=== PATIENT | male | born 1950 | race Caucasian/White ===

== ENCOUNTER 2016-11-25 16:40 | Inpatient (IN) | payer MEDICARE, MEDICAID ==
[2016-11-25] MEDS ORDERED: Sodium Chloride 0.9% 1,000 ML IV ONE (16:45)
--- NOTE | 2016-11-25 16:49 | ED Physician Chart ---
Chief Complaint/HPI - Patient Information Date Seen:: 11/25/16 Time Seen:: 16:46 Chief Complaint:: ugi bleed? History of Present Illness:: demented pt from [place] sent in for 4x today episodes of emesis of coffee ground material. has a hx of ulcer. pt unable to give any hx...due to dementia? no known melena or tarry stool. no recent cp or sob. family arrives (6;19p) - dtr says he in nrmlly nonverbal and this is his baseline neuro status. was unaware of any ulcer hx Historian:: EMS Review of Systems - Review of Systems General/Constitutional: No fever, No chills, No weight loss, No weakness, No diaphoresis, No edema, No loss of appetite, Other (ros is limited by nonverbal pt. most info is inferred.) Skin: No skin lesions, No rash, No bruising Head: No headache, No light-headedness Eyes: No loss of vision, No pain, No diplopia ENT: No earache, No nasal drainage, No sore throat, No tinnitus Neck: No neck pain, No swelling, No thyromegaly, No stiffness, No mass noted Cardio Vascular: No chest pain, No palpitations, No PND, No orthopnea, No edema Pulmonary: No SOB, No cough, No sputum, No wheezing GI: No nausea, Vomiting, No diarrhea, No pain, No melena, No hematochezia, No constipation, No hematemesis G/U: No dysuria, No frequency, No hematuria Musculoskeletal: No bone or joint pain, No back pain, No muscle pain Endocrine: No polyuria, No polydipsia Psychiatric: No prior psych history, No depression, No anxiety, No suicidal ideation Hematopoietic: No bruising, No lymphadenopathy Allergic/Immuno: No urticaria, No angioedema Neurological: No syncope, No focal symptoms, No weakness, No paresthesia, No headache, No seizure, No dizziness, Confusion, No vertigo Past Medical History - Past Medical History Past Medical History: Asthma/COPD, PUD/GERD, Seizures, Arthritis, Dementia, Other (parkinson dz, peripheral vasc dzanemia, encephalopathy) Social History: Care Facility Surgical History: PEG/GTube Medication: Reviewed Family Medical History - Family Member Mother History Unknown: Yes Physical Exam - Physical Examination General/Constitutional: Well-developed, well-nourished, No distress, Non-toxic appearing Other Gen/Cons comments:: nonverbal. seems unaware of surroundings. alert w even respirations. not pale. moist mucosa. no abd tndrness. nor mass. Head: Atraumatic Eyes: Lids, conjuctiva normal, PERRL, EOMI Skin: Nl inspection, No rash, No skin lesions, No ecchymosis, Well hydrated, No lymphadenopathy ENMT: External ears, nose nl, Nasal exam nl, Lips, teeth, gums nl Other ENMT comments:: black material on tongue Neck: Nontender, Full ROM w/o pain, No JVD, No nuchal rigidity, No bruit, No mass, No stridor Respiratory: Nl effort/Exclusion, Clear to Auscultation, No Wheeze/Rhonchi/Rales Cardio Vascular: RRR, No murmur, gallop, rubs, NL S1 S2 GI: No tenderness/rebounding/guarding, No organomegaly, No hernia, Normal BS's, Nondistended, No mass/bruits, No McBurney tenderness Other GI comments:: peg tube at luq abd ..site looks clean/noninfected : No CVA tenderness Extremities: No tenderness or effusion, Full ROM, normal strength in all extremities, No edema, Normal digits & nails Neuro/Psych: DTR's symmetric, Normal sensory exam, Normal motor strength, No focal deficits (gross ok.) Misc: normal gait, Normal back, No paraspinal tenderness Labs/Radiology/EKG Results - Lab Results Results: Laboratory Tests 11/25/16 11/25/16 11/25/16 17:05 17:05 17:05 WBC 23.4 H* RBC 4.66 Hgb 15.4 Hct 44.1 MCV 94.6 MCH 33.2 H MCHC Differential 35.1 RDW 12.0 Plt Count 168 MPV 9.5 Band Neutrophils % 24 H Neutrophils (Manual) 71 Lymphocytes 1 L Monocytes 4 Eosinophils 0 Platelet Estimate ADEQUATE Platelet Morphology NORMAL RBC Morph Micro Appear NORMAL PT 13.1 H INR 1.30 PTT (Actin FS) 27.9 Sodium 135 L Potassium 3.9 Chloride 109 H Carbon Dioxide 25.5 Anion Gap 4.4 L BUN 40 H Creatinine 0.8 Est GFR ( Amer) > 60.0 Est GFR (Non-Af Amer) > 60.0 BUN/Creatinine Ratio 50.0 Glucose 154 H Calcium 9.2 Total Bilirubin 1.2 H AST 28 ALT 43 Alkaline Phosphatase 66 Troponin I Total Protein 6.8 Albumin 3.4 L Globulin 3.4 Albumin/Globulin Ratio 1.0 Blood Type Antibody Screen 11/25/16 11/25/16 17:05 17:05 WBC RBC Hgb Hct MCV MCH MCHC Differential RDW Plt Count MPV Band Neutrophils % Neutrophils (Manual) Lymphocytes Monocytes Eosinophils Platelet Estimate Platelet Morphology RBC Morph Micro Appear PT INR PTT (Actin FS) Sodium Potassium Chloride Carbon Dioxide Anion Gap BUN Creatinine Est GFR ( Amer) Est GFR (Non-Af Amer) BUN/Creatinine Ratio Glucose Calcium Total Bilirubin AST ALT Alkaline Phosphatase Troponin I 0.01 Total Protein Albumin Globulin Albumin/Globulin Ratio Blood Type O POSITIVE Antibody Screen NEGATIVE - Radiology Results Results: cxr nad - EKG Interpretations EKG Time:: 16:50 Rhythm: nsr Hankins: -73 Rate: 102 Comments:: nsr ED Septic Shock - . Is Septic Shock (SBP<90, OR Lactate>4 mmol\L) present?: No Reassessment (Disposition) - Reassessment Reassessment:: harmony Gonzalez - will admit for gi bleed and r/o sepsis given high wbc/bands Reassessment Condition:: Unchanged - Diagnosis Diagnosis:: 1 ugi bleed 2 high wbc w bandemia possible infection/sepsis rule out - Aftercare/Follow up Instructions Aftercare/Follow-Up Instructions:: Counseled pt & family regarding lab results/ diagnosis & need follow up - Patient Disposition Admitted to:: Telemetry Condition at Disposition:: Unchanged
[2016-11-25 17:09] VITALS: BP 92/68
[2016-11-25 17:20] LABS: HEMOGLOBIN 15.4 gm/dL (12.6-17.4)
[2016-11-25 17:23] LABS: HEMATOCRIT 44.1 % (39.0-49.0); MEAN CELL VOLUME 94.6 fl (80-99); MEAN CORPUSCULAR HEMOGLOBIN 33.2 pg (27.0-31.0); MEAN CORPUSCULAR HGB CONC 35.1 pg (28.0-36.0); MEAN PLATELET VOLUME 9.5 fl; PLATELET COUNT 168 Th/cmm (150-400); RED BLOOD COUNT 4.66 Mil/cmm (3.80-5.80)
[2016-11-25 17:27] LABS: WHITE BLOOD COUNT 23.4 Th/cmm (4.8-10.8)
[2016-11-25 17:28] LABS: ALKALINE PHOSPHATASE 66 U/L (34-104); ANION GAP 4.4 (7.0-16.0); BILIRUBIN,TOTAL 1.2 mg/dL (0.3-1.0); BUN - UREA NITROGEN 40 mg/dL (7-25); CALCIUM SERUM 9.2 mg/dL (8.6-10.3); CARBON DIOXIDE 25.5 mEq/L (21.0-31.0); CHLORIDE 109 mEq/L (98-107); CREATININE - SERUM 0.8 mg/dL (0.7-1.3); GLUCOSE 154 mg/dL (70-105); POTASSIUM SERUM 3.9 mEq/L (3.5-5.1); SGOT 28 U/L (13-39); SGPT/ALT 43 U/L (7-52); SODIUM SERUM 135 mEq/L (136-145)
[2016-11-25 17:38] LABS: INR 1.3 (0.5-1.4); PROTHROMBIN TIME (TEST) 13.1 SECONDS (9.5-11.5)
[2016-11-25 17:49] LABS: BAND NEUTROPHILE 24 % (0-10); EOSINOPHIL 0 % (0-5); NEUTROPHILS 71 % (40-80); PLATELET ESTIMATE ADEQUATE (NORMAL); PLATELET MORPHOLOGY NORMAL (NORMAL); TOTAL CELLS COUNTED 100
[2016-11-25] MEDS ORDERED: Morphine Sulfate 2 mg/mL 1mL Syr IVP PRN (20:50)
[2016-11-25] MEDS ORDERED: Maalox 30 mL Cup PO PRN (20:50)
[2016-11-25] MEDS ORDERED: Levofloxacin 500mg/100mL 500 MG/100 ML BAG IV ONE (21:54)
[2016-11-25] MEDS: D5-0.45NS 1,000 ML IV SCH (22:13)
[2016-11-25] MEDS: Levofloxacin 500mg/100mL 500 MG/100 ML BAG IV SCH (22:14)
--- NOTE | 2016-11-25 22:37 | Admit Criteria Form ---
Admit Criteria Forms - Admit Criteria Diagnosis: SEPSIS and OTHER FEBRILE ILLNESS, W/O FOCAL INFECTION Clinical Indications for Admission to Inpatient Care ( Place 'X' for any and all applicable criteria): Admission is indicated for ANY ONE of the following (1)(2)(3)(4): [ ] I. Bacteremia [ X]II. Suspected or identified specific infection requiring hospitalization (eg, meningitis, endocarditis) [ ]III. Hemodynamic instability [ ]IV. Altered mental status [ ]V. Failure or unavailability of outpatient antimicrobial treatment [ ]. Hypoxemia [ ]VII. Seizures [ ]VIII. High-risk febrile neutropenia [ ]IX. Need for parenteral antibiotic in patient who is likely to abuse vascular access device (eg, injection drug user) [A](7) [ ]X. Temperature greater than 104.9 degrees F (40.5 degrees C) (oral) [X ]XI. Inpatient admission required rather than observation care because of ANY ONE of the following: [ ]1) Specific infection identified that is too severe for outpatient treatment or observation care trial [ ]2) Metabolic disorder (eg, hypoglycemia, hyperglycemia, metabolic acidosis) that is severe or persistent [ ]3) Temperature greater than 103.1 degrees F (39.5 degrees C) ( oral) that is not responsive to observation care treatment [ ]4) IV fluid to replace significant ongoing (eg, for over 24 hours) losses (> 3 L/m2 per day) [ ]5) Supplemental oxygen or respiratory treatments for over 24 hours that is performable only in acute inpatient setting [ ]6) Parenteral nutrition regimen need that must be implemented on inpatient basis [ ]7) Strict or protective (eg, laminar flow) isolation [X ]8) Other condition, treatment or monitoring requiring inpatient admission Extended stay beyond goal length of stay may be needed for(1)(3) [ ]a) Sepsis or septic shock(22) [ ]b) Positive blood cultures [ ]c) Insufficient oral intake [ ]d) High-risk febrile neutropenia(29)(30) [ ]e) Continued fever and clinical instability [ ]f) Clinically active comorbid illness (e.g,heart failure, renal failure , diabetes) The original [employer] content created by [employer] has been revised. The portions of the content which have been revised are identified through the use of italic text or in bold, and [facility] has neither reviewed nor approved the modified material. All other unmodified content is copyright [facility]. Please see references footnoted in the original [facility] edition 2016 Admit Criteria Met?: Yes
[2016-11-25] MEDS: Levetiracetam 500 mg/5mL 5mL UDC GT SCH (23:22)
[2016-11-26 05:44] LABS: ALKALINE PHOSPHATASE 50 U/L (34-104); ANION GAP 3.1 (7.0-16.0); BILIRUBIN,TOTAL 0.8 mg/dL (0.3-1.0); BUN - UREA NITROGEN 29 mg/dL (7-25); BUN/CREATININE RATIO 48.3; CALCIUM SERUM 8.5 mg/dL (8.6-10.3); CARBON DIOXIDE 26.7 mEq/L (21.0-31.0); CHLORIDE 111 mEq/L (98-107); CREATININE - SERUM 0.6 mg/dL (0.7-1.3); GLUCOSE 122 mg/dL (70-105); POTASSIUM SERUM 3.8 mEq/L (3.5-5.1); SGOT 23 U/L (13-39); SGPT/ALT 31 U/L (7-52); SODIUM SERUM 137 mEq/L (136-145)
[2016-11-26 05:53] LABS: BNP 67.3 pg/mL (5.0-100.0)
[2016-11-26] MEDS ORDERED: MINERALS PO SCH (09:00)
[2016-11-26] MEDS ORDERED: FERROUS FUM PO SCH (09:00)
[2016-11-26] MEDS ORDERED: MULTIVIT PO SCH (09:00)
--- NOTE | 2016-11-26 09:12 | Diagnostic Imaging Report ---
CHEST X-RAY: AP view INDICATION: Aspiration COMPARISON: None FINDINGS: Chronic changes are seen with mild increased bibasilar lung markings. No focal consolidation or pleural effusions. Heart size is normal. There is minimal atherosclerosis of the aortic arch. Degenerative changes of the spine are noted. IMPRESSION: Chronic lung changes of mild increased bibasilar lung markings favoring atelectasis. No focal consolidation identified. Please correlate clinically.
[2016-11-26] MEDS: D5-0.45NS 1,000 ML IV SCH (10:13)
[2016-11-26] MEDS: Levetiracetam 500 mg/5mL 5mL UDC GT SCH (10:17)
[2016-11-26] MEDS ORDERED: VTE Chemical Prophylaxis Screen/Admission MC PRN (11:00)
[2016-11-26 12:03] LABS: URINE BILIRUBIN NEGATIVE (NEGATIVE); URINE BLOOD TRACE (NEGATIVE); URINE COLOR YELLOW; URINE GLUCOSE (UA) NEGATIVE (NEGATIVE); URINE KETONE TRACE mg/dL (NEGATIVE)
[2016-11-26 12:04] LABS: URINE PROTEIN TRACE mg/dL (NEGATIVE); URINE UROBILINOGEN 0.2 E.U./dL (0.2 - 1.0)
[2016-11-26 12:10] LABS: URINE BACTERIA FEW /hpf (NONE SEEN); URINE EPITHELIAL CELLS OCCASIONAL /lpf (FEW); URINE RBC 0-2 /hpf (0-5); URINE WBC 0-2 /hpf (0-5)
[2016-11-26] MEDS ORDERED: Sodium Chloride 0.9% 500 ML IV ONE (15:22)
--- NOTE | 2016-11-26 16:18 | Internal Medicine Prog Note ---
Internal Medicine Subjective - Subjective Service Date: 11/26/16 ([facility] DICTATED [id number]) Internal Medicine Objective - Results Result Diagrams: 11/25/16 17:05 11/26/16 04:52 Recent Labs: Laboratory Last Values WBC 23.4 Th/cmm (4.8-10.8) H* 11/25/16 17:05 RBC 4.66 Mil/cmm (3.80-5.80) 11/25/16 17:05 Hgb 15.4 gm/dL (12.6-17.4) 11/25/16 17:05 Hct 44.1 % (39.0-49.0) 11/25/16 17:05 MCV 94.6 fl (80-99) 11/25/16 17:05 MCH 33.2 pg (27.0-31.0) H 11/25/16 17:05 MCHC Differential 35.1 pg (28.0-36.0) 11/25/16 17:05 RDW 12.0 % (11.5-20.0) 11/25/16 17:05 Plt Count 168 Th/cmm (150-400) 11/25/16 17:05 MPV 9.5 fl 11/25/16 17:05 Band Neutrophils % 24 % (0-10) H 11/25/16 17:05 Neutrophils (Manual) 71 % (40-80) 11/25/16 17:05 Lymphocytes 1 % (20-50) L 11/25/16 17:05 Monocytes 4 % (2-10) 11/25/16 17:05 Eosinophils 0 % (0-5) 11/25/16 17:05 Platelet Estimate ADEQUATE (NORMAL) 11/25/16 17:05 Platelet Morphology NORMAL (NORMAL) 11/25/16 17:05 RBC Morph Micro Appear NORMAL (NORMAL) 11/25/16 17:05 PT 13.1 SECONDS (9.5-11.5) H 11/25/16 17:05 INR 1.30 (0.5-1.4) 11/25/16 17:05 PTT (Actin FS) 27.9 SECONDS (26.0-38.0) 11/25/16 17:05 Sodium 137 mEq/L (136-145) 11/26/16 04:52 Potassium 3.8 mEq/L (3.5-5.1) 11/26/16 04:52 Chloride 111 mEq/L (98-107) H 11/26/16 04:52 Carbon Dioxide 26.7 mEq/L (21.0-31.0) 11/26/16 04:52 Anion Gap 3.1 (7.0-16.0) L 11/26/16 04:52 BUN 29 mg/dL (7-25) H 11/26/16 04:52 Creatinine 0.6 mg/dL (0.7-1.3) L 11/26/16 04:52 Est GFR ( Amer) > 60.0 ml/min 11/26/16 04:52 Est GFR (Non-Af Amer) > 60.0 ml/min 11/26/16 04:52 BUN/Creatinine Ratio 48.3 11/26/16 04:52 Glucose 122 mg/dL (70-105) H 11/26/16 04:52 Whole Bld Lactic Acid 2.32 mmol/L (0.60-2.00) H* 11/25/16 22:15 Calcium 8.5 mg/dL (8.6-10.3) L 11/26/16 04:52 Total Bilirubin 0.8 mg/dL (0.3-1.0) 11/26/16 04:52 AST 23 U/L (13-39) 11/26/16 04:52 ALT 31 U/L (7-52) 11/26/16 04:52 Alkaline Phosphatase 50 U/L (34-104) 11/26/16 04:52 Ammonia 37 umol/L (16-53) 11/26/16 04:52 Troponin I 0.01 ng/mL (0.01-0.05) 11/25/16 17:05 B-Natriuretic Peptide 67.3 pg/mL (5.0-100.0) 11/26/16 04:52 Total Protein 5.7 gm/dL (6.0-8.3) L 11/26/16 04:52 Albumin 2.8 gm/dL (4.2-5.5) L 11/26/16 04:52 Globulin 2.9 gm/dL 11/26/16 04:52 Albumin/Globulin Ratio 1.0 (1.0-1.8) 11/26/16 04:52 Urine Source RANDOM 11/26/16 11:40 Urine Color YELLOW 11/26/16 11:40 Urine Clarity CLEAR (CLEAR) 11/26/16 11:40 Urine pH 6.0 11/26/16 11:40 Ur Specific [place] 1.020 (1.005-1.030) 11/26/16 11:40 Urine Protein TRACE mg/dL (NEGATIVE) 11/26/16 11:40 Urine Glucose (UA) NEGATIVE mg/dL (NEGATIVE) 11/26/16 11:40 Urine Ketones TRACE mg/dL (NEGATIVE) 11/26/16 11:40 Urine Blood TRACE (NEGATIVE) 11/26/16 11:40 Urine Nitrate NEGATIVE (NEGATIVE) 11/26/16 11:40 Urine Bilirubin NEGATIVE (NEGATIVE) 11/26/16 11:40 Urine Urobilinogen 0.2 E.U./dL (0.2 - 1.0) 11/26/16 11:40 Ur Leukocyte Esterase NEGATIVE (NEGATIVE) 11/26/16 11:40 Urine RBC 0-2 /hpf (0-5) H 11/26/16 11:40 Urine WBC 0-2 /hpf (0-5) 11/26/16 11:40 Ur Epithelial Cells OCCASIONAL /lpf (FEW) 11/26/16 11:40 Urine Bacteria FEW /hpf (NONE SEEN) 11/26/16 11:40 Urine Mucus FEW /lpf (FEW) 11/26/16 11:40 Blood Type O POSITIVE 11/25/16 17:05 Antibody Screen NEGATIVE 11/25/16 17:05 - Physical Exam Vitals and I&O: Vital Signs Temp 98.2 F 11/26/16 12:00 Pulse 73 11/26/16 12:00 Resp 18 11/26/16 15:39 BP 93/54 11/26/16 12:00 Pulse Ox 97 11/26/16 12:00 Intake & Output 11/25/16 11/26/16 11/26/16 18:59 06:59 18:59 Intake Total 100 1250 Balance 100 1250 Intake: Intake, IV Amount 100 1250 D5-0.45NS 1,000 ml @ 100 1000 mls/hr IV .Q10H ANGELICA Rx#: [id number] Levofloxacin 500mg/100mL 100 500 mg In 100 ml @ 100 mls/hr IV Q24HR ANGELICA Rx#: [id number] Vancomycin HCl 1 gm In 250 Sodium Chloride 0.9% 250 ml @ 165 mls/hr IV Q12H [facility] Rx#:[id number] Other: # Voids 3 # Bowel Movements 0 Active Medications: Current Medications Acetaminophen (Tylenol) 650 mg PO Q4HR PRN PRN Reason: Pain or Fever >101 Stop: 01/24/17 20:52 Al Hydrox/Mg Hydrox/Simethicone (Maalox) 30 ml PO Q6HR PRN PRN Reason: Constipation Stop: 01/24/17 20:49 Albuterol Sulfate (Albuterol 2.5mg/3ml Neb Ud) 2.5 mg IH Q2HR PRN PRN Reason: Shortness of Breath or Wheeze Stop: 01/24/17 20:49 Docusate Sodium (Colace) 100 mg PO DAILY [facility] Stop: 01/25/17 08:59 Last Admin: 11/26/16 10:18 Dose: Not Given Donepezil HCl (Aricept) 10 mg PO DAILY [facility]ICA Stop: 01/25/17 08:59 Last Admin: 11/26/16 10:18 Dose: Not Given Heparin Sodium (Porcine) (Heparin) 5,000 units SUBQ Q12HR ANGELICA Stop: 01/25/17 20:59 Dextrose/Sodium Chloride (D5-0.45ns) 1,000 mls @ 100 mls/hr IV .Q10H [facility] Stop: 01/24/17 20:59 Last Admin: 11/26/16 10:13 Dose: 100 mls/hr Levofloxacin (Levaquin Pb) 500 mg in 100 mls @ 100 mls/hr IV Q24HR ANGELICA Stop: 01/24/17 20:59 Last Infusion: 11/25/16 23:14 Dose: Infused Vancomycin HCl 1 gm/ Sodium (Chloride) 250 mls @ 165 mls/hr IV Q12H ANGELICA Stop: 01/25/17 09:59 Last Infusion: 11/26/16 12:30 Dose: Infused Ipratropium Clemons (Atrovent Neb 0.5mg/2.5ml) 0.5 mg IH Q2HR PRN PRN Reason: Shortness of Breath or Wheeze Stop: 01/24/17 20:49 Levetiracetam (Keppra) 500 mg GT BID ANGELICA Stop: 01/24/17 20:59 Last Admin: 11/26/16 10:17 Dose: Not Given Lorazepam (Ativan) 1 mg IV Q4HR PRN; Protocol PRN Reason: Seizure Stop: 01/24/17 20:49 Miscellaneous (Vancomycin Iv Per Pharmacy) 1 ea [facility] PRN ANGELICA Stop: 01/24/17 20:59 Miscellaneous (Vte [employer] Prophylaxis Screen/ Admission) 1 ea PRN PRN PRN Reason: PROTOCOL Stop: 01/25/17 10:59 Morphine Sulfate (Morphine) 2 mg IVP Q4HR PRN PRN Reason: Pain (Severe) Stop: 01/24/17 20:49 Ondansetron HCl (Zofran) 4 mg IV Q8H PRN PRN Reason: Nausea / Vomiting Stop: 01/24/17 20:52 Last Admin: 11/26/16 02:52 Dose: 4 mg Pantoprazole Sodium (Protonix) 40 mg IVP BID ANGELICA Stop: 01/25/17 08:59 Last Admin: 11/26/16 08:17 Dose: 40 mg Zolpidem Tartrate (Ambien) 10 mg PO HS PRN PRN Reason: Insomnia Stop: 01/24/17 20:49 Internal Medicine Assmt/Plan - Assessment Assessment: Upper GI Bleed Possible sepsis COPD ASTHMA ENCEPHALOPATHY
--- NOTE | 2016-11-26 17:00 | History & Physical ---
CHIEF COMPLAINT: Coffee ground emesis. HISTORY OF PRESENT ILLNESS: This is a 65-year-old male who is a resident of [facility] who is sent here to [facility] for episode of coffee ground emesis x 4. The patient did not have any diarrhea, any fevers at the senior living. For this reason, the patient is now admitted to the telemetry unit. PAST MEDICAL HISTORY: Asthma, COPD, GERD, seizures, arthritis, dementia, Parkinson's disease, peripheral vascular disease, anemia, encephalopathy. PAST SURGICAL HISTORY: PEG. SOCIAL HISTORY: The patient resides at a senior living, requiring 24-hour nursing care. MEDICATIONS: Please see medication reconciliation sheet. ALLERGIES: No drug allergies. FAMILY HISTORY: Noncontributory. REVIEW OF SYSTEMS: Unable to obtain. The patient is not interactive. PHYSICAL EXAMINATION: GENERAL: The patient appears chronically ill, in no acute distress. VITAL SIGNS: Temperature 98.2, heart rate 73, blood pressure 93/54, respirations 18, O2 97%. HEENT: Head; normocephalic, atraumatic. NECK: Supple. No mass. LUNGS: Clear bilaterally upon auscultation. CARDIOVASCULAR: Regular rate and rhythm. No murmurs or gallops. SKIN: Intact, warm and dry to touch. ABDOMEN: Soft, nontender, nondistended. Positive bowel sounds in all 4 quadrants. LABORATORY DATA: WBC 23.4, H and H 15.4 and 44.1, platelet 168. Sodium 135, potassium ____, chloride 109, BUN 40, creatinine 0.8, whole lactic acid 2.32. DIAGNOSTICS : The patient had a chest x-ray done and the impression is chronic lung changes, mild increased bibasilar lung markings favoring atelectasis. No focal consolidation identified. ASSESSMENT: Upper gastrointestinal bleed, possible sepsis, dementia, gastroesophageal reflux disease, chronic obstructive pulmonary disease, seizures. PLAN: The patient to be admitted to the telemetry unit. The patient to have a consultation with Dr. Pinto. The patient to be on a clear liquid diet. Monitor the patient's H and H. Seizure precautions. The patient will be on IV Keppra. JOB# [id number]
[2016-11-26] MEDS: Levetiracetam 500mg/100mL 500 MG/100 ML BAG IV SCH (18:58)
[2016-11-26] MEDS: Levofloxacin 500mg/100mL 500 MG/100 ML BAG IV SCH (21:03)
--- NOTE | 2016-11-26 22:45 | Consultation ---
INPATIENT GI CONSULTATION REFERRING PHYSICIAN: Dr. Luis Fernando Gonzalez. REASON FOR CONSULTATION: Upper GI bleed. HISTORY OF PRESENT ILLNESS: This is a 65-year-old male who presented with coffee ground emesis. The patient is otherwise a poor historian, unable to give any meaningful history. PAST MEDICAL HISTORY: Asthma, COPD, peptic ulcer disease, seizure disorder, arthritis, dementia and Parkinson disease. PAST SURGICAL HISTORY: PEG tube placement. FAMILY HISTORY: Noncontributory. SOCIAL HISTORY: Resident of skilled facility. ALLERGIES: None. CURRENT MEDICATIONS: Tylenol, Maalox, Aricept, heparin, Keppra, Levaquin, Ativan, morphine, Zofran and Protonix. REVIEW OF SYSTEMS: Unobtainable. PHYSICAL EXAMINATION: VITAL SIGNS: Temperature 98.2, breathing 18, pulse of 73, blood pressure 93/54 and satting 97%. GENERAL: In no apparent distress. EYES: Anicteric, normal conjunctivae. HENT: Normocephalic ____. Moist mucous membranes. NECK: Soft, supple. CHEST: Clear ____. CARDIOVASCULAR: Regular rate and rhythm. ABDOMEN: Soft, nontender, nondistended with a G-tube. SKIN: Warm and dry. EXTREMITIES: Reveal no cyanosis. LABORATORY DATA: Show white count 23, hemoglobin 15.4 and platelets of 158. INR is 1.3, BUN 40 and creatinine 0.8. LFTs within normal limits. IMPRESSION: This is a 65-year-old male with coffee ground emesis, upper GI bleed. Cause could be esophagitis versus Jacque-Godinez tear versus peptic ulcer disease, etc. PLAN: 1. EGD. 2. ____. 3. Follow H and H and transfuse as needed. Thank you for allowing me to participate. Please call me if any questions. JOB# [id number]
[2016-11-27] MEDS ORDERED: Levetiracetam 500mg/100mL 500 MG/100 ML BAG IV ONE (05:02)
[2016-11-27] MEDS: D5-0.45NS 1,000 ML IV SCH ×2 (05:10→20:46)
[2016-11-27] MEDS: Levetiracetam 500mg/100mL 500 MG/100 ML BAG IV SCH ×2 (05:10→17:31)
[2016-11-27 05:20] LABS: % BASOPHILS 0.1 % (0.0-2.0); RED BLOOD COUNT 3.42 Mil/cmm (3.80-5.80)
[2016-11-27 05:31] LABS: INR 1.21 (0.5-1.4); PROTHROMBIN TIME (TEST) 12.2 SECONDS (9.5-11.5)
[2016-11-27 05:35] LABS: % EOSINOPHILS 0.7 % (0.0-5.0); % MONOCYTES 8.5 % (2.0-10.0); % NEUTROPHILS 77.7 % (40.0-80.0); MEAN CELL VOLUME 96.4 fl (80-99); MEAN CORPUSCULAR HEMOGLOBIN 33.6 pg (27.0-31.0); MEAN CORPUSCULAR HGB CONC 34.8 pg (28.0-36.0); MEAN PLATELET VOLUME 9.4 fl; NEUTROPHILE ABSOLUTE 7.7 Th/cmm (1.8-8.0)
[2016-11-27 05:49] LABS: ALB/GLOB RATIO 0.9 (1.0-1.8); ALKALINE PHOSPHATASE 43 U/L (34-104); ANION GAP 5.6 (7.0-16.0); BUN - UREA NITROGEN 15 mg/dL (7-25); CHLORIDE 111 mEq/L (98-107); CREATININE - SERUM 0.5 mg/dL (0.7-1.3); GLUCOSE 96 mg/dL (70-105); POTASSIUM SERUM 3.6 mEq/L (3.5-5.1); SGOT 20 U/L (13-39); SGPT/ALT 23 U/L (7-52); SODIUM SERUM 137 mEq/L (136-145)
[2016-11-27 05:55] LABS: HEMOGLOBIN 11.5 gm/dL (12.6-17.4); WHITE BLOOD COUNT 9.9 Th/cmm (4.8-10.8)
[2016-11-27 05:56] LABS: PLATELET COUNT 115 Th/cmm (150-400)
[2016-11-27 09:19] LABS: FOLIC ACID 13.3 ng/mL (>3.0)
--- NOTE | 2016-11-27 11:34 | Diagnostic Imaging Report ---
Portable chest x-ray HISTORY: Cough, preoperative Compared with the prior exam of 11/25/2016, density noted in the left lower lobe. Infiltrate/pneumonia cannot be excluded. Clinical correlation is needed. A nasogastric tube extends into the region of the stomach. IMPRESSION: 1. Suggestion of new density left lower lobe. Pneumonia and/or atelectasis cannot be excluded. Clinical correlation is needed. 2. Nasogastric tube extending into the region of the stomach
[2016-11-27] MEDS ORDERED: Lactated Ringer 1,000 ML IV SCH (11:45)
--- NOTE | 2016-11-27 12:48 | Internal Medicine Prog Note ---
Internal Medicine Subjective - Subjective Service Date: 11/27/16 Patient seen and examined:: with staff Patient is:: awake Per staff patient is:: no adverse event Internal Medicine Objective - Results Result Diagrams: 11/27/16 04:49 11/27/16 04:49 Recent Labs: Laboratory Last Values WBC 9.9 Th/cmm (4.8-10.8) D 11/27/16 04:49 RBC 3.42 Mil/cmm (3.80-5.80) L 11/27/16 04:49 Hgb 11.5 gm/dL (12.6-17.4) L D 11/27/16 04:49 Hct 33.0 % (39.0-49.0) L D 11/27/16 04:49 MCV 96.4 fl (80-99) 11/27/16 04:49 MCH 33.6 pg (27.0-31.0) H 11/27/16 04:49 MCHC Differential 34.8 pg (28.0-36.0) 11/27/16 04:49 RDW 12.0 % (11.5-20.0) 11/27/16 04:49 Plt Count 115 Th/cmm (150-400) L D 11/27/16 04:49 MPV 9.4 fl 11/27/16 04:49 Neutrophils % 77.7 % (40.0-80.0) 11/27/16 04:49 Band Neutrophils % 24 % (0-10) H 11/25/16 17:05 Lymphocytes % 13.0 % (20.0-50.0) L 11/27/16 04:49 Monocytes % 8.5 % (2.0-10.0) 11/27/16 04:49 Eosinophils % 0.7 % (0.0-5.0) 11/27/16 04:49 Basophils % 0.1 % (0.0-2.0) 11/27/16 04:49 Neutrophils (Manual) 71 % (40-80) 11/25/16 17:05 Lymphocytes 1 % (20-50) L 11/25/16 17:05 Monocytes 4 % (2-10) 11/25/16 17:05 Eosinophils 0 % (0-5) 11/25/16 17:05 Platelet Estimate ADEQUATE (NORMAL) 11/25/16 17:05 Platelet Morphology NORMAL (NORMAL) 11/25/16 17:05 RBC Morph Micro Appear NORMAL (NORMAL) 11/25/16 17:05 PT 12.2 SECONDS (9.5-11.5) H 11/27/16 04:49 INR 1.21 (0.5-1.4) 11/27/16 04:49 PTT (Actin FS) 40.2 SECONDS (26.0-38.0) H 11/27/16 04:49 Sodium 137 mEq/L (136-145) 11/27/16 04:49 Potassium 3.6 mEq/L (3.5-5.1) 11/27/16 04:49 Chloride 111 mEq/L (98-107) H 11/27/16 04:49 Carbon Dioxide 24.0 mEq/L (21.0-31.0) 11/27/16 04:49 Anion Gap 5.6 (7.0-16.0) L 11/27/16 04:49 BUN 15 mg/dL (7-25) 11/27/16 04:49 Creatinine 0.5 mg/dL (0.7-1.3) L 11/27/16 04:49 Est GFR ( Amer) > 60.0 ml/min 11/27/16 04:49 Est GFR (Non-Af Amer) > 60.0 ml/min 11/27/16 04:49 BUN/Creatinine Ratio 30.0 11/27/16 04:49 Glucose 96 mg/dL (70-105) 11/27/16 04:49 POC Glucose 93 MG/DL (70 - 105) 11/27/16 07:00 Whole Bld Lactic Acid 2.32 mmol/L (0.60-2.00) H* 11/25/16 22:15 Calcium 8.0 mg/dL (8.6-10.3) L 11/27/16 04:49 Total Bilirubin 1.0 mg/dL (0.3-1.0) 11/27/16 04:49 AST 20 U/L (13-39) 11/27/16 04:49 ALT 23 U/L (7-52) 11/27/16 04:49 Alkaline Phosphatase 43 U/L (34-104) 11/27/16 04:49 Ammonia 37 umol/L (16-53) 11/26/16 04:52 Troponin I 0.01 ng/mL (0.01-0.05) 11/25/16 17:05 B-Natriuretic Peptide 67.3 pg/mL (5.0-100.0) 11/26/16 04:52 Total Protein 5.4 gm/dL (6.0-8.3) L 11/27/16 04:49 Albumin 2.6 gm/dL (4.2-5.5) L 11/27/16 04:49 Globulin 2.8 gm/dL 11/27/16 04:49 Albumin/Globulin Ratio 0.9 (1.0-1.8) L 11/27/16 04:49 Vitamin B12 1161 pg/mL (211-946) H 11/26/16 04:52 Folic Acid 13.3 ng/mL (>3.0) 11/26/16 04:52 Urine Source RANDOM 11/26/16 11:40 Urine Color YELLOW 11/26/16 11:40 Urine Clarity CLEAR (CLEAR) 11/26/16 11:40 Urine pH 6.0 11/26/16 11:40 Ur Specific [place] 1.020 (1.005-1.030) 11/26/16 11:40 Urine Protein TRACE mg/dL (NEGATIVE) 11/26/16 11:40 Urine Glucose (UA) NEGATIVE mg/dL (NEGATIVE) 11/26/16 11:40 Urine Ketones TRACE mg/dL (NEGATIVE) 11/26/16 11:40 Urine Blood TRACE (NEGATIVE) 11/26/16 11:40 Urine Nitrate NEGATIVE (NEGATIVE) 11/26/16 11:40 Urine Bilirubin NEGATIVE (NEGATIVE) 11/26/16 11:40 Urine Urobilinogen 0.2 E.U./dL (0.2 - 1.0) 11/26/16 11:40 Ur Leukocyte Esterase NEGATIVE (NEGATIVE) 11/26/16 11:40 Urine RBC 0-2 /hpf (0-5) H 11/26/16 11:40 Urine WBC 0-2 /hpf (0-5) 11/26/16 11:40 Ur Epithelial Cells OCCASIONAL /lpf (FEW) 11/26/16 11:40 Urine Bacteria FEW /hpf (NONE SEEN) 11/26/16 11:40 Urine Mucus FEW /lpf (FEW) 11/26/16 11:40 Vancomycin Trough 9.6 ug/mL (10-20) L 11/27/16 09:40 Blood Type O POSITIVE 11/25/16 17:05 Antibody Screen NEGATIVE 11/25/16 17:05 - Physical Exam Vitals and I&O: Vital Signs Temp 98.8 F 11/27/16 12:00 Pulse 61 11/27/16 12:00 Resp 18 11/27/16 12:00 BP 129/51 11/27/16 12:00 Pulse Ox 98 11/27/16 12:00 Intake & Output 11/26/16 11/27/16 11/27/16 18:59 06:59 18:59 Intake Total 1250 1350 Output Total 230 10 Balance 1020 1350 -10 Weight (lbs) 158 lb 1.6 oz Intake: Intake, IV Amount 1250 1350 D5-0.45NS 1,000 ml @ 100 1000 1000 mls/hr IV .Q10H [facility] Rx#: [id number] Levetiracetam 500mg/100mL 100 500 mg In 100 ml @ 400 mls/hr IV Q12H [facility] Rx#: [id number] Vancomycin HCl 1 gm In 250 250 Sodium Chloride 0.9% 250 ml @ 165 mls/hr IV Q12H [facility] Rx#:[id number] Oral 0 Output: Gastric Drainage 30 Urine 200 Other 10 Other: # Voids 2 4 # Bowel Movements 1 Active Medications: Current Medications Acetaminophen (Tylenol) 650 mg PO Q4HR PRN PRN Reason: Pain or Fever >101 Stop: 01/24/17 20:52 Al Hydrox/Mg Hydrox/Simethicone (Maalox) 30 ml PO Q6HR PRN PRN Reason: Constipation Stop: 01/24/17 20:49 Albuterol Sulfate (Albuterol 2.5mg/3ml Neb Ud) 2.5 mg IH Q2HR PRN PRN Reason: Shortness of Breath or Wheeze Stop: 01/24/17 20:49 Docusate Sodium (Colace) 100 mg PO DAILY [facility] Stop: 01/25/17 08:59 Last Admin: 11/27/16 08:58 Dose: Not Given Donepezil HCl (Aricept) 10 mg PO DAILY [facility] Stop: 01/25/17 08:59 Last Admin: 11/27/16 08:58 Dose: Not Given Dextrose/Sodium Chloride (D5-0.45ns) 1,000 mls @ 100 mls/hr IV .Q10H [facility] Stop: 01/24/17 20:59 Last Admin: 11/27/16 05:10 Dose: 100 mls/hr Levofloxacin (Levaquin Pb) 500 mg in 100 mls @ 100 mls/hr IV Q24HR [facility] Stop: 01/24/17 20:59 Last Admin: 11/26/16 21:03 Dose: 100 mls/hr Levetiracetam (Keppra Pb) 500 mg in 100 mls @ 400 mls/hr IV Q12H [facility] Stop: 01/25/17 16:29 Last Admin: 11/27/16 05:10 Dose: 400 mls/hr Lactated Ringer's (Lactated Ringer) 1,000 mls @ 0 mls/hr IV .Q0M [facility] PRN Reason: TKO Stop: 11/28/16 11:44 Vancomycin HCl 1.25 gm/ Sodium (Chloride) 250 mls @ 165 mls/hr IV Q12H [facility] Stop: 01/26/17 21:59 Ipratropium [place] (Atrovent Neb 0.5mg/2.5ml) 0.5 mg IH Q2HR PRN PRN Reason: Shortness of Breath or Wheeze Stop: 01/24/17 20:49 Lorazepam (Ativan) 1 mg IV Q4HR PRN; Protocol PRN Reason: Seizure Stop: 01/24/17 20:49 Miscellaneous (Vancomycin Iv Per Pharmacy) 1 ea PRN [facility] Stop: 01/24/17 20:59 Miscellaneous (Vte Chemical Prophylaxis Screen/ Admission) 1 ea PRN PRN PRN Reason: PROTOCOL Stop: 01/25/17 10:59 Morphine Sulfate (Morphine) 2 mg IVP Q4HR PRN PRN Reason: Pain (Severe) Stop: 01/24/17 20:49 Ondansetron HCl (Zofran) 4 mg IV Q8H PRN PRN Reason: Nausea / Vomiting Stop: 01/24/17 20:52 Last Admin: 11/26/16 02:52 Dose: 4 mg Pantoprazole Sodium (Protonix) 40 mg IVP BID [facility] Stop: 01/25/17 08:59 Last Admin: 11/27/16 09:25 Dose: 40 mg Zolpidem Tartrate (Ambien) 10 mg PO HS PRN PRN Reason: Insomnia Stop: 01/24/17 20:49 General: weak HEENT: NC/AT, PERRLA Neck: Supple Lungs: CTAB Cardiovascular: RRR, Normal S1, Normal S2, without murmur Abdomen: soft non-tender, non-distended, positive bowel sound Neurological: no change Internal Medicine Assmt/Plan - Assessment Assessment: Upper GI Bleed Possible sepsis COPD ASTHMA ENCEPHALOPATHY - Plan Plan: s/p egd monitor h/h ivf for hydration
[2016-11-27] MEDS: Ipratropium Neb 0.5 mg/2.5 mL UD IH PRN ×2 (15:22→19:54)
[2016-11-27] MEDS: Albuterol Nebulizer 2.5mg/3mL IH PRN ×2 (15:22→19:54)
[2016-11-27] MEDS: Levofloxacin 500mg/100mL 500 MG/100 ML BAG IV SCH (20:29)
[2016-11-28 05:25] LABS: % BASOPHILS 0.7 % (0.0-2.0); % EOSINOPHILS 2.3 % (0.0-5.0); % LYMPHOCYTES 22.9 % (20.0-50.0); % MONOCYTES 11.1 % (2.0-10.0); HEMATOCRIT 32.9 % (39.0-49.0); HEMOGLOBIN 11.4 gm/dL (12.6-17.4); MEAN CELL VOLUME 96.7 fl (80-99); MEAN CORPUSCULAR HEMOGLOBIN 33.4 pg (27.0-31.0); MEAN CORPUSCULAR HGB CONC 34.5 pg (28.0-36.0); MEAN PLATELET VOLUME 9.2 fl; NEUTROPHILE ABSOLUTE 3.7 Th/cmm (1.8-8.0); PLATELET COUNT 127 Th/cmm (150-400); RED CELL DISTRIBUTION WIDTH 11.9 % (11.5-20.0); WHITE BLOOD COUNT 5.7 Th/cmm (4.8-10.8)
[2016-11-28 05:50] LABS: ANION GAP 4.3 (7.0-16.0); BUN - UREA NITROGEN 10 mg/dL (7-25); CALCIUM SERUM 7.9 mg/dL (8.6-10.3); CARBON DIOXIDE 25.4 mEq/L (21.0-31.0); CHLORIDE 110 mEq/L (98-107); CREATININE - SERUM 0.4 mg/dL (0.7-1.3); GLUCOSE 119 mg/dL (70-105); POTASSIUM SERUM 3.7 mEq/L (3.5-5.1); SODIUM SERUM 136 mEq/L (136-145)
[2016-11-28] MEDS: Levetiracetam 500mg/100mL 500 MG/100 ML BAG IV SCH ×2 (07:33→16:20)
[2016-11-28] MEDS: D5-0.45NS 1,000 ML IV SCH ×2 (09:13→11:01)
--- NOTE | 2016-11-28 10:18 | Internal Medicine Prog Note ---
Internal Medicine Subjective - Subjective Patient seen and examined:: with staff, chart reviewed Patient is:: asleep, non-verbal, non-interactive Patient Complaints of:: congestion Per staff patient is:: confused Internal Medicine Objective - Results Result Diagrams: 11/28/16 04:40 11/28/16 04:40 Recent Labs: Laboratory Last Values WBC 5.7 Th/cmm (4.8-10.8) D 11/28/16 04:40 RBC 3.40 Mil/cmm (3.80-5.80) L 11/28/16 04:40 Hgb 11.4 gm/dL (12.6-17.4) L 11/28/16 04:40 Hct 32.9 % (39.0-49.0) L 11/28/16 04:40 MCV 96.7 fl (80-99) 11/28/16 04:40 MCH 33.4 pg (27.0-31.0) H 11/28/16 04:40 MCHC Differential 34.5 pg (28.0-36.0) 11/28/16 04:40 RDW 11.9 % (11.5-20.0) 11/28/16 04:40 Plt Count 127 Th/cmm (150-400) L 11/28/16 04:40 MPV 9.2 fl 11/28/16 04:40 Neutrophils % 63.0 % (40.0-80.0) 11/28/16 04:40 Band Neutrophils % 24 % (0-10) H 11/25/16 17:05 Lymphocytes % 22.9 % (20.0-50.0) 11/28/16 04:40 Monocytes % 11.1 % (2.0-10.0) H 11/28/16 04:40 Eosinophils % 2.3 % (0.0-5.0) 11/28/16 04:40 Basophils % 0.7 % (0.0-2.0) 11/28/16 04:40 Neutrophils (Manual) 71 % (40-80) 11/25/16 17:05 Lymphocytes 1 % (20-50) L 11/25/16 17:05 Monocytes 4 % (2-10) 11/25/16 17:05 Eosinophils 0 % (0-5) 11/25/16 17:05 Platelet Estimate ADEQUATE (NORMAL) 11/25/16 17:05 Platelet Morphology NORMAL (NORMAL) 11/25/16 17:05 RBC Morph Micro Appear NORMAL (NORMAL) 11/25/16 17:05 PT 12.2 SECONDS (9.5-11.5) H 11/27/16 04:49 INR 1.21 (0.5-1.4) 11/27/16 04:49 PTT (Actin FS) 40.2 SECONDS (26.0-38.0) H 11/27/16 04:49 Sodium 136 mEq/L (136-145) 11/28/16 04:40 Potassium 3.7 mEq/L (3.5-5.1) 11/28/16 04:40 Chloride 110 mEq/L (98-107) H 11/28/16 04:40 Carbon Dioxide 25.4 mEq/L (21.0-31.0) 11/28/16 04:40 Anion Gap 4.3 (7.0-16.0) L 11/28/16 04:40 BUN 10 mg/dL (7-25) 11/28/16 04:40 Creatinine 0.4 mg/dL (0.7-1.3) L 11/28/16 04:40 Est GFR ( Amer) > 60.0 ml/min 11/28/16 04:40 Est GFR (Non-Af Amer) > 60.0 ml/min 11/28/16 04:40 BUN/Creatinine Ratio 25.0 11/28/16 04:40 Glucose 119 mg/dL (70-105) H 11/28/16 04:40 POC Glucose 93 MG/DL (70 - 105) 11/27/16 07:00 Whole Bld Lactic Acid 2.32 mmol/L (0.60-2.00) H* 11/25/16 22:15 Calcium 7.9 mg/dL (8.6-10.3) L 11/28/16 04:40 Total Bilirubin 1.0 mg/dL (0.3-1.0) 11/27/16 04:49 AST 20 U/L (13-39) 11/27/16 04:49 ALT 23 U/L (7-52) 11/27/16 04:49 Alkaline Phosphatase 43 U/L (34-104) 11/27/16 04:49 Ammonia 37 umol/L (16-53) 11/26/16 04:52 Troponin I 0.01 ng/mL (0.01-0.05) 11/25/16 17:05 B-Natriuretic Peptide 67.3 pg/mL (5.0-100.0) 11/26/16 04:52 Total Protein 5.4 gm/dL (6.0-8.3) L 11/27/16 04:49 Albumin 2.6 gm/dL (4.2-5.5) L 11/27/16 04:49 Globulin 2.8 gm/dL 11/27/16 04:49 Albumin/Globulin Ratio 0.9 (1.0-1.8) L 11/27/16 04:49 Vitamin B12 1161 pg/mL (211-946) H 11/26/16 04:52 Folic Acid 13.3 ng/mL (>3.0) 11/26/16 04:52 Urine Source RANDOM 11/26/16 11:40 Urine Color YELLOW 11/26/16 11:40 Urine Clarity CLEAR (CLEAR) 11/26/16 11:40 Urine pH 6.0 11/26/16 11:40 Ur Specific [place] 1.020 (1.005-1.030) 11/26/16 11:40 Urine Protein TRACE mg/dL (NEGATIVE) 11/26/16 11:40 Urine Glucose (UA) NEGATIVE mg/dL (NEGATIVE) 11/26/16 11:40 Urine Ketones TRACE mg/dL (NEGATIVE) 11/26/16 11:40 Urine Blood TRACE (NEGATIVE) 11/26/16 11:40 Urine Nitrate NEGATIVE (NEGATIVE) 11/26/16 11:40 Urine Bilirubin NEGATIVE (NEGATIVE) 11/26/16 11:40 Urine Urobilinogen 0.2 E.U./dL (0.2 - 1.0) 11/26/16 11:40 Ur Leukocyte Esterase NEGATIVE (NEGATIVE) 11/26/16 11:40 Urine RBC 0-2 /hpf (0-5) H 11/26/16 11:40 Urine WBC 0-2 /hpf (0-5) 11/26/16 11:40 Ur Epithelial Cells OCCASIONAL /lpf (FEW) 11/26/16 11:40 Urine Bacteria FEW /hpf (NONE SEEN) 11/26/16 11:40 Urine Mucus FEW /lpf (FEW) 11/26/16 11:40 Vancomycin Trough 9.6 ug/mL (10-20) L 11/27/16 09:40 Blood Type O POSITIVE 11/25/16 17:05 Antibody Screen NEGATIVE 11/25/16 17:05 - Physical Exam Vitals and I&O: Vital Signs Temp 97.9 F 11/28/16 08:17 Pulse 57 11/28/16 08:17 Resp 20 11/28/16 08:17 BP 90/62 11/28/16 08:17 Pulse Ox 98 11/28/16 08:17 Intake & Output 11/27/16 11/28/16 11/28/16 18:59 06:59 18:59 Intake Total 1440 1400 Output Total 60 Balance 1380 1400 Intake: Intake, IV Amount 1100 1000 D5-0.45NS 1,000 ml @ 100 1000 1000 mls/hr IV .Q10H [facility] Rx#: [id number] Levetiracetam 500mg/100mL 100 500 mg In 100 ml @ 400 mls/hr IV Q12H [facility] Rx#: [id number] Tube Feeding 240 400 Other 100 Output: Other 60 Other: # Voids 3 4 # Bowel Movements 1 Stool Characteristics Soft Formed Brown Active Medications: Current Medications Acetaminophen (Tylenol) 650 mg PO Q4HR PRN PRN Reason: Pain or Fever >101 Stop: 01/24/17 20:52 Al Hydrox/Mg Hydrox/Simethicone (Maalox) 30 ml PO Q6HR PRN PRN Reason: Constipation Stop: 01/24/17 20:49 Albuterol Sulfate (Albuterol 2.5mg/3ml Neb Ud) 2.5 mg IH Q2HR PRN PRN Reason: Shortness of Breath or Wheeze Stop: 01/24/17 20:49 Last Admin: 11/27/16 19:54 Dose: 2.5 mg Docusate Sodium (Colace) 100 mg PO DAILY [facility] Stop: 01/25/17 08:59 Last Admin: 11/28/16 08:33 Dose: 100 mg Donepezil HCl (Aricept) 10 mg PO DAILY [facility] Stop: 01/25/17 08:59 Last Admin: 11/28/16 08:33 Dose: 10 mg Levofloxacin (Levaquin Pb) 500 mg in 100 mls @ 100 mls/hr IV Q24HR [facility] Stop: 01/24/17 20:59 Last Admin: 11/27/16 20:29 Dose: 100 mls/hr Levetiracetam (Keppra Pb) 500 mg in 100 mls @ 400 mls/hr IV Q12H [facility] Stop: 01/25/17 16:29 Last Admin: 11/28/16 07:33 Dose: 400 mls/hr Lactated Ringer's (Lactated Ringer) 1,000 mls @ 0 mls/hr IV .Q0M [facility] PRN Reason: TKO Stop: 11/28/16 11:44 Vancomycin HCl 1.25 gm/ Sodium (Chloride) 250 mls @ 165 mls/hr IV Q12HR@0800, 2000 [facility] Stop: 01/27/17 19:59 Ipratropium [place] (Atrovent Neb 0.5mg/2.5ml) 0.5 mg IH Q2HR PRN PRN Reason: Shortness of Breath or Wheeze Stop: 01/24/17 20:49 Last Admin: 11/27/16 19:54 Dose: 0.5 mg Lorazepam (Ativan) 1 mg IV Q4HR PRN; Protocol PRN Reason: Seizure Stop: 01/24/17 20:49 Miscellaneous (Vancomycin Iv Per Pharmacy) 1 ea PRN [facility] Stop: 01/24/17 20:59 Miscellaneous (Vte Chemical Prophylaxis Screen/ Admission) 1 ea PRN PRN PRN Reason: PROTOCOL Stop: 01/25/17 10:59 Morphine Sulfate (Morphine) 2 mg IVP Q4HR PRN PRN Reason: Pain (Severe) Stop: 01/24/17 20:49 Ondansetron HCl (Zofran) 4 mg IV Q8H PRN PRN Reason: Nausea / Vomiting Stop: 01/24/17 20:52 Last Admin: 11/26/16 02:52 Dose: 4 mg Pantoprazole Sodium (Protonix) 40 mg IVP BID [facility] Stop: 01/25/17 08:59 Last Admin: 11/28/16 08:33 Dose: 40 mg Zolpidem Tartrate (Ambien) 10 mg PO HS PRN PRN Reason: Insomnia Stop: 01/24/17 20:49 General: lethargic, demented HEENT: NC/AT, PERRLA Neck: Supple, No JVD Lungs: congested Cardiovascular: RRR, Normal S1, Normal S2 Abdomen: soft non-tender, globular, distended Extremities: excoriation, contracture Neurological: no change Internal Medicine Assmt/Plan - Assessment Assessment: pmn Upper GI Bleed Possible sepsis COPD ASTHMA ENCEPHALOPATHY - Plan Plan: cont on iv abx will send sputum gs and c\s o2 bronchodilator dw staff
[2016-11-28] MEDS: Levofloxacin 500mg/100mL 500 MG/100 ML BAG IV SCH (22:13)
[2016-11-29] MEDS: D5-0.45NS 1,000 ML IV SCH ×2 (04:00→17:03)
[2016-11-29] MEDS: Levetiracetam 500mg/100mL 500 MG/100 ML BAG IV SCH ×2 (04:05→16:59)
[2016-11-29] MEDS: Albuterol Nebulizer 2.5mg/3mL IH PRN ×3 (05:09→11:16)
[2016-11-29] MEDS: Ipratropium Neb 0.5 mg/2.5 mL UD IH PRN ×3 (05:09→11:16)
--- NOTE | 2016-11-29 11:54 | Internal Medicine Prog Note ---
Internal Medicine Subjective - Subjective Patient seen and examined:: with staff, chart reviewed Patient is:: asleep, non-verbal, non-interactive, in bed Patient Complaints of:: congestion Per staff patient is:: no adverse event, confused Internal Medicine Objective - Results Result Diagrams: 11/28/16 04:40 11/28/16 04:40 Recent Labs: Laboratory Last Values WBC 5.7 Th/cmm (4.8-10.8) D 11/28/16 04:40 RBC 3.40 Mil/cmm (3.80-5.80) L 11/28/16 04:40 Hgb 11.4 gm/dL (12.6-17.4) L 11/28/16 04:40 Hct 32.9 % (39.0-49.0) L 11/28/16 04:40 MCV 96.7 fl (80-99) 11/28/16 04:40 MCH 33.4 pg (27.0-31.0) H 11/28/16 04:40 MCHC Differential 34.5 pg (28.0-36.0) 11/28/16 04:40 RDW 11.9 % (11.5-20.0) 11/28/16 04:40 Plt Count 127 Th/cmm (150-400) L 11/28/16 04:40 MPV 9.2 fl 11/28/16 04:40 Neutrophils % 63.0 % (40.0-80.0) 11/28/16 04:40 Band Neutrophils % 24 % (0-10) H 11/25/16 17:05 Lymphocytes % 22.9 % (20.0-50.0) 11/28/16 04:40 Monocytes % 11.1 % (2.0-10.0) H 11/28/16 04:40 Eosinophils % 2.3 % (0.0-5.0) 11/28/16 04:40 Basophils % 0.7 % (0.0-2.0) 11/28/16 04:40 Neutrophils (Manual) 71 % (40-80) 11/25/16 17:05 Lymphocytes 1 % (20-50) L 11/25/16 17:05 Monocytes 4 % (2-10) 11/25/16 17:05 Eosinophils 0 % (0-5) 11/25/16 17:05 Platelet Estimate ADEQUATE (NORMAL) 11/25/16 17:05 Platelet Morphology NORMAL (NORMAL) 11/25/16 17:05 RBC Morph Micro Appear NORMAL (NORMAL) 11/25/16 17:05 PT 12.2 SECONDS (9.5-11.5) H 11/27/16 04:49 INR 1.21 (0.5-1.4) 11/27/16 04:49 PTT (Actin FS) 40.2 SECONDS (26.0-38.0) H 11/27/16 04:49 Sodium 136 mEq/L (136-145) 11/28/16 04:40 Potassium 3.7 mEq/L (3.5-5.1) 11/28/16 04:40 Chloride 110 mEq/L (98-107) H 11/28/16 04:40 Carbon Dioxide 25.4 mEq/L (21.0-31.0) 11/28/16 04:40 Anion Gap 4.3 (7.0-16.0) L 11/28/16 04:40 BUN 10 mg/dL (7-25) 11/28/16 04:40 Creatinine 0.4 mg/dL (0.7-1.3) L 11/28/16 04:40 Est GFR ( Amer) > 60.0 ml/min 11/28/16 04:40 Est GFR (Non-Af Amer) > 60.0 ml/min 11/28/16 04:40 BUN/Creatinine Ratio 25.0 11/28/16 04:40 Glucose 119 mg/dL (70-105) H 11/28/16 04:40 POC Glucose 93 MG/DL (70 - 105) 11/27/16 07:00 Whole Bld Lactic Acid 2.32 mmol/L (0.60-2.00) H* 11/25/16 22:15 Calcium 7.9 mg/dL (8.6-10.3) L 11/28/16 04:40 Total Bilirubin 1.0 mg/dL (0.3-1.0) 11/27/16 04:49 AST 20 U/L (13-39) 11/27/16 04:49 ALT 23 U/L (7-52) 11/27/16 04:49 Alkaline Phosphatase 43 U/L (34-104) 11/27/16 04:49 Ammonia 37 umol/L (16-53) 11/26/16 04:52 Troponin I 0.01 ng/mL (0.01-0.05) 11/25/16 17:05 B-Natriuretic Peptide 67.3 pg/mL (5.0-100.0) 11/26/16 04:52 Total Protein 5.4 gm/dL (6.0-8.3) L 11/27/16 04:49 Albumin 2.6 gm/dL (4.2-5.5) L 11/27/16 04:49 Globulin 2.8 gm/dL 11/27/16 04:49 Albumin/Globulin Ratio 0.9 (1.0-1.8) L 11/27/16 04:49 Vitamin B12 1161 pg/mL (211-946) H 11/26/16 04:52 Folic Acid 13.3 ng/mL (>3.0) 11/26/16 04:52 Urine Source RANDOM 11/26/16 11:40 Urine Color YELLOW 11/26/16 11:40 Urine Clarity CLEAR (CLEAR) 11/26/16 11:40 Urine pH 6.0 11/26/16 11:40 Ur Specific [place] 1.020 (1.005-1.030) 11/26/16 11:40 Urine Protein TRACE mg/dL (NEGATIVE) 11/26/16 11:40 Urine Glucose (UA) NEGATIVE mg/dL (NEGATIVE) 11/26/16 11:40 Urine Ketones TRACE mg/dL (NEGATIVE) 11/26/16 11:40 Urine Blood TRACE (NEGATIVE) 11/26/16 11:40 Urine Nitrate NEGATIVE (NEGATIVE) 11/26/16 11:40 Urine Bilirubin NEGATIVE (NEGATIVE) 11/26/16 11:40 Urine Urobilinogen 0.2 E.U./dL (0.2 - 1.0) 11/26/16 11:40 Ur Leukocyte Esterase NEGATIVE (NEGATIVE) 11/26/16 11:40 Urine RBC 0-2 /hpf (0-5) H 11/26/16 11:40 Urine WBC 0-2 /hpf (0-5) 11/26/16 11:40 Ur Epithelial Cells OCCASIONAL /lpf (FEW) 11/26/16 11:40 Urine Bacteria FEW /hpf (NONE SEEN) 11/26/16 11:40 Urine Mucus FEW /lpf (FEW) 11/26/16 11:40 Vancomycin Trough 9.6 ug/mL (10-20) L 11/27/16 09:40 Blood Type O POSITIVE 11/25/16 17:05 Antibody Screen NEGATIVE 11/25/16 17:05 - Physical Exam Vitals and I&O: Vital Signs Temp 98.2 F 11/29/16 08:00 Pulse 71 11/29/16 11:17 Resp 20 11/29/16 11:17 BP 114/73 11/29/16 08:00 Pulse Ox 98 11/29/16 11:17 Intake & Output 11/28/16 11/29/16 11/29/16 18:59 06:59 18:59 Intake Total 960 1730 Output Total 50 Balance 910 1730 Weight (lbs) 75.614 kg Intake: Intake, IV Amount 200 1250 D5-0.45NS 1,000 ml @ 70 1000 mls/hr IV .[id number] [facility] Rx #:[id number] Levetiracetam 500mg/100mL 200 500 mg In 100 ml @ 400 mls/hr IV Q12H [facility] Rx#: [id number] Vancomycin HCl 1.25 gm In 250 Sodium Chloride 0.9% 250 ml @ 165 mls/hr IV Q12HR @0800,2000 [facility] Rx#: [id number] Tube Feeding 560 480 Other 200 Output: Other 50 Other: # Voids 3 Active Medications: Current Medications Acetaminophen (Tylenol) 650 mg PO Q4HR PRN PRN Reason: Pain or Fever >101 Stop: 01/24/17 20:52 Al Hydrox/Mg Hydrox/Simethicone (Maalox) 30 ml PO Q6HR PRN PRN Reason: Constipation Stop: 01/24/17 20:49 Albuterol Sulfate (Albuterol 2.5mg/3ml Neb Ud) 2.5 mg IH Q2HR PRN PRN Reason: Shortness of Breath or Wheeze Stop: 01/24/17 20:49 Last Admin: 11/29/16 11:16 Dose: 2.5 mg Docusate Sodium (Colace) 100 mg PO DAILY [facility] Stop: 01/25/17 08:59 Last Admin: 11/29/16 09:05 Dose: 100 mg Donepezil HCl (Aricept) 10 mg PO DAILY [facility] Stop: 01/25/17 08:59 Last Admin: 11/29/16 09:05 Dose: 10 mg Levofloxacin (Levaquin Pb) 500 mg in 100 mls @ 100 mls/hr IV Q24HR [facility] Stop: 01/24/17 20:59 Last Admin: 11/28/16 22:13 Dose: 100 mls/hr Levetiracetam (Keppra Pb) 500 mg in 100 mls @ 400 mls/hr IV Q12H [facility] Stop: 01/25/17 16:29 Last Admin: 11/29/16 04:05 Dose: 100 mls/hr Vancomycin HCl 1.25 gm/ Sodium (Chloride) 250 mls @ 165 mls/hr IV Q12HR@0800, 2000 [facility] Stop: 01/27/17 19:59 Last Admin: 11/29/16 09:25 Dose: 165 mls/hr Dextrose/Sodium Chloride (D5-0.45ns) 1,000 mls @ 70 mls/hr IV .[id number] [facility] Stop: 01/27/17 10:14 Last Admin: 11/29/16 04:00 Dose: 70 mls/hr Ipratropium [place] (Atrovent Neb 0.5mg/2.5ml) 0.5 mg IH Q2HR PRN PRN Reason: Shortness of Breath or Wheeze Stop: 01/24/17 20:49 Last Admin: 11/29/16 11:16 Dose: 0.5 mg Lorazepam (Ativan) 1 mg IV Q4HR PRN; Protocol PRN Reason: Seizure Stop: 01/24/17 20:49 Midodrine (Proamatine) 5 mg PO TID [facility] Stop: 01/27/17 13:59 Last Admin: 11/29/16 09:05 Dose: 5 mg Miscellaneous (Vancomycin Iv Per Pharmacy) 1 ea [facility] PRN [facility] Stop: 01/24/17 20:59 Miscellaneous (Vte [employer] Prophylaxis Screen/ Admission) 1 ea [facility] PRN PRN PRN Reason: PROTOCOL Stop: 01/25/17 10:59 Morphine Sulfate (Morphine) 2 mg IVP Q4HR PRN PRN Reason: Pain (Severe) Stop: 01/24/17 20:49 Ondansetron HCl (Zofran) 4 mg IV Q8H PRN PRN Reason: Nausea / Vomiting Stop: 01/24/17 20:52 Last Admin: 11/26/16 02:52 Dose: 4 mg Pantoprazole Sodium (Protonix) 40 mg IVP BID ANGELICA Stop: 01/25/17 08:59 Last Admin: 11/29/16 09:05 Dose: 40 mg Zolpidem Tartrate (Ambien) 10 mg PO HS PRN PRN Reason: Insomnia Stop: 01/24/17 20:49 General: lethargic, demented HEENT: NC/AT, PERRLA Neck: Supple, No JVD Lungs: congested Cardiovascular: RRR, Normal S1, Normal S2 Abdomen: soft non-tender, globular, positive bowel sound Extremities: excoriation, contracture Neurological: no change, unable to follow command Internal Medicine Assmt/Plan - Assessment Assessment: pmn Upper GI Bleed Possible sepsis COPD ASTHMA ENCEPHALOPATHY - Plan Plan: cont on iv abx will send sputum gs and c\s o2 bronchodilator dw staff
[2016-11-29] MEDS ORDERED: Albuterol Nebulizer 2.5mg/3mL HHN PRN (12:09)
[2016-11-29] MEDS ORDERED: Ipratropium Neb 0.5 mg/2.5 mL UD HHN PRN (12:10)
[2016-11-29] MEDS ORDERED: Albuterol/Ipratropium Neb 3 ML AERS HHN PRN (12:13)
[2016-11-29] MEDS: guaiFENesin 200 MG/10 ML UDC PO PRN (14:05)
[2016-11-29] MEDS: Albuterol/Ipratropium Neb 3 ML AERS HHN SCH ×2 (14:52→19:40)
[2016-11-29] MEDS ORDERED: Ipratropium Neb 0.5 mg/2.5 mL UD HHN SCH (15:00)
--- NOTE | 2016-11-29 20:12 | Operative Report ---
INPATIENT GASTROINTESTINAL PROCEDURE NAME OF PROCEDURE: EGD with biopsy. REFERRING PHYSICIAN: Dr. Gonzalez. REASON FOR PROCEDURE: Coffee-ground emesis, upper GI bleed. CONSENT: Risks, benefits, alternatives, nature, indication, and possible outcomes were discussed. Mentioned bleeding, infection, perforation, , disability, cardiopulmonary distress, arrest, missed lesion, cancers, and need for surgery. The patient expressed understanding. The patient agreed and provided informed consent. PREOPERATIVE DIAGNOSES: 1. Coffee-ground emesis. 2. Upper gastrointestinal bleed. POSTOPERATIVE DIAGNOSES: 1. Esophagitis. 2. Jacque-Godinez tear/gastric erosion. 3. Gastritis. 4. Intact PEG tube. MEDICATIONS: Provided by anesthesiologist. PROCEDURE: The patient was placed on left side. Upper gastroscope advanced from the mouth and second portion of duodenum. The scope was brought back in stomach with retroflexion view of fundus, cardia, and lesser curvature. Scope was then straightened. The NG tube was removed. The G-tube was pushed in so we can look behind the bumper which appeared to be normal and intact. The scope was slowly withdrawn through the esophagus and removed. COMPLICATIONS: None. FINDINGS: 1. GE junction at 40 cm. 2. LA Class C esophagitis. 3. Jacque-Godinez tear/gastric erosion. 4. Gastritis status post biopsy. 5. Normal duodenum. 6. G-tube intact PEG type. RECOMMENDATION: 1. Protonix b.i.d. 2. Follow H and H. 3. The patient will need to have a repeat endoscopy in 3 months to be arranged per primary doctor. Thank you for allowing me to participate. Please call me if you have any questions. JOB# [id number]
[2016-11-29] MEDS: Levofloxacin 500mg/100mL 500 MG/100 ML BAG IV SCH (22:52)
[2016-11-30] MEDS: Levetiracetam 500mg/100mL 500 MG/100 ML BAG IV SCH ×2 (05:17→15:49)
[2016-11-30] MEDS: Albuterol/Ipratropium Neb 3 ML AERS HHN SCH ×4 (07:35→19:58)
[2016-11-30 07:39] LABS: % BASOPHILS 0.3 % (0.0-2.0); % LYMPHOCYTES 25.8 % (20.0-50.0); % NEUTROPHILS 53.9 % (40.0-80.0); HEMATOCRIT 30.5 % (39.0-49.0); HEMOGLOBIN 10.6 gm/dL (12.6-17.4); MEAN CELL VOLUME 95.9 fl (80-99); MEAN CORPUSCULAR HEMOGLOBIN 33.2 pg (27.0-31.0); MEAN CORPUSCULAR HGB CONC 34.6 pg (28.0-36.0); MEAN PLATELET VOLUME 8.6 fl; NEUTROPHILE ABSOLUTE 2.9 Th/cmm (1.8-8.0); RED BLOOD COUNT 3.18 Mil/cmm (3.80-5.80); WHITE BLOOD COUNT 5.2 Th/cmm (4.8-10.8)
[2016-11-30 07:45] LABS: ANION GAP 3.2 (7.0-16.0); BUN - UREA NITROGEN 9 mg/dL (7-25); BUN/CREATININE RATIO 22.5; CHLORIDE 109 mEq/L (98-107); CREATININE - SERUM 0.4 mg/dL (0.7-1.3); GLUCOSE 104 mg/dL (70-105); PLATELET COUNT 155 Th/cmm (150-400); POTASSIUM SERUM 3.2 mEq/L (3.5-5.1); SODIUM SERUM 135 mEq/L (136-145)
--- NOTE | 2016-11-30 11:09 | Diagnostic Imaging Report ---
Portable chest x-ray HISTORY: Pneumonia Compared to prior exam of 11/27/2016, decreased density in the left lower lobe. The heart remains enlarged. No hilar or mediastinal abnormalities. Nasogastric tube has been removed. IMPRESSION: 1. Decreased parenchymal density left lower lobe since 11/27/2016.
--- NOTE | 2016-11-30 12:21 | Pathology Report ---
[id number] Collection date: 11/27/2016 Surgeon: Dr. Jossue Seth Specimen Description: 1: Antrum biopsy. 2: Esophagus biopsy. Gross Description: Part I: Received in formalin are two [place]leton soft tissue fragments ranging from 0.1 to 0.2 cm in greatest dimension. Totally submitted in one cassette labeled A. Gross Description: Part II: Received in formalin are two [place] soft tissue fragments ranging from 0.1 to 0.2 cm in greatest dimension. Totally submitted in one cassette labeled B. Microscopic Description: Part I: The histologic sections show gastric mucosa with mild chronic inflammation present consisting of lymphocytes and plasma cells. The Giemsa stain shows no evidence for Helicobacter pylori. Diagnosis: Part I: 1. Mild chronic gastritis, antrum biopsy. 2. The Giemsa stain is negative for Helicobacter pylori. Microscopic Description: Part II: The histologic sections show esophageal squamous mucosa with chronic inflammation present consisting of lymphocytes and plasma cells. There is also a small area of inflammatory exudate consisting of collections of neutrophils. The PAS stain shows no evidence for fungal organisms. The Alcian blue stain shows no significant abnormalities. Diagnosis: Part II: 1. Chronic esophagitis (esophageal biopsy). 2. There is also focal inflammatory exudate consistent with esophageal ulceration. [facility]# [id number] [facility]
[2016-11-30] MEDS ORDERED: Potassium Chloride 20 mEq ER Tab PO ONE (12:55)
--- NOTE | 2016-11-30 12:55 | Internal Medicine Prog Note ---
Internal Medicine Subjective - Subjective Service Date: 11/30/16 Patient seen and examined:: with staff Patient is:: awake Patient Complaints of:: congestion Internal Medicine Objective - Results Result Diagrams: 11/30/16 06:00 11/30/16 06:00 Recent Labs: Laboratory Last Values WBC 5.2 Th/cmm (4.8-10.8) 11/30/16 06:00 RBC 3.18 Mil/cmm (3.80-5.80) L 11/30/16 06:00 Hgb 10.6 gm/dL (12.6-17.4) L 11/30/16 06:00 Hct 30.5 % (39.0-49.0) L 11/30/16 06:00 MCV 95.9 fl (80-99) 11/30/16 06:00 MCH 33.2 pg (27.0-31.0) H 11/30/16 06:00 MCHC Differential 34.6 pg (28.0-36.0) 11/30/16 06:00 RDW 12.0 % (11.5-20.0) 11/30/16 06:00 Plt Count 155 Th/cmm (150-400) D 11/30/16 06:00 MPV 8.6 fl 11/30/16 06:00 Neutrophils % 53.9 % (40.0-80.0) 11/30/16 06:00 Band Neutrophils % 24 % (0-10) H 11/25/16 17:05 Lymphocytes % 25.8 % (20.0-50.0) 11/30/16 06:00 Monocytes % 14.0 % (2.0-10.0) H 11/30/16 06:00 Eosinophils % 6.0 % (0.0-5.0) H 11/30/16 06:00 Basophils % 0.3 % (0.0-2.0) 11/30/16 06:00 Neutrophils (Manual) 71 % (40-80) 11/25/16 17:05 Lymphocytes 1 % (20-50) L 11/25/16 17:05 Monocytes 4 % (2-10) 11/25/16 17:05 Eosinophils 0 % (0-5) 11/25/16 17:05 Platelet Estimate ADEQUATE (NORMAL) 11/25/16 17:05 Platelet Morphology NORMAL (NORMAL) 11/25/16 17:05 RBC Morph Micro Appear NORMAL (NORMAL) 11/25/16 17:05 PT 12.2 SECONDS (9.5-11.5) H 11/27/16 04:49 INR 1.21 (0.5-1.4) 11/27/16 04:49 PTT (Actin FS) 40.2 SECONDS (26.0-38.0) H 11/27/16 04:49 Sodium 135 mEq/L (136-145) L 11/30/16 06:00 Potassium 3.2 mEq/L (3.5-5.1) L 11/30/16 06:00 Chloride 109 mEq/L (98-107) H 11/30/16 06:00 Carbon Dioxide 26.0 mEq/L (21.0-31.0) 11/30/16 06:00 Anion Gap 3.2 (7.0-16.0) L 11/30/16 06:00 BUN 9 mg/dL (7-25) 11/30/16 06:00 Creatinine 0.4 mg/dL (0.7-1.3) L 11/30/16 06:00 Est GFR ( Amer) > 60.0 ml/min 11/30/16 06:00 Est GFR (Non-Af Amer) > 60.0 ml/min 11/30/16 06:00 BUN/Creatinine Ratio 22.5 11/30/16 06:00 Glucose 104 mg/dL (70-105) 11/30/16 06:00 POC Glucose 93 MG/DL (70 - 105) 11/27/16 07:00 Whole Bld Lactic Acid 2.32 mmol/L (0.60-2.00) H* 11/25/16 22:15 Calcium 8.0 mg/dL (8.6-10.3) L 11/30/16 06:00 Total Bilirubin 1.0 mg/dL (0.3-1.0) 11/27/16 04:49 AST 20 U/L (13-39) 11/27/16 04:49 ALT 23 U/L (7-52) 11/27/16 04:49 Alkaline Phosphatase 43 U/L (34-104) 11/27/16 04:49 Ammonia 54 umol/L (16-53) H 11/30/16 06:00 Troponin I 0.01 ng/mL (0.01-0.05) 11/25/16 17:05 B-Natriuretic Peptide 143.0 pg/mL (5.0-100.0) H 11/30/16 06:00 Total Protein 5.4 gm/dL (6.0-8.3) L 11/27/16 04:49 Albumin 2.6 gm/dL (4.2-5.5) L 11/27/16 04:49 Globulin 2.8 gm/dL 11/27/16 04:49 Albumin/Globulin Ratio 0.9 (1.0-1.8) L 11/27/16 04:49 Vitamin B12 1161 pg/mL (211-946) H 11/26/16 04:52 Folic Acid 13.3 ng/mL (>3.0) 11/26/16 04:52 Urine Source RANDOM 11/26/16 11:40 Urine Color YELLOW 11/26/16 11:40 Urine Clarity CLEAR (CLEAR) 11/26/16 11:40 Urine pH 6.0 11/26/16 11:40 Ur Specific [place] 1.020 (1.005-1.030) 11/26/16 11:40 Urine Protein TRACE mg/dL (NEGATIVE) 11/26/16 11:40 Urine Glucose (UA) NEGATIVE mg/dL (NEGATIVE) 11/26/16 11:40 Urine Ketones TRACE mg/dL (NEGATIVE) 11/26/16 11:40 Urine Blood TRACE (NEGATIVE) 11/26/16 11:40 Urine Nitrate NEGATIVE (NEGATIVE) 11/26/16 11:40 Urine Bilirubin NEGATIVE (NEGATIVE) 11/26/16 11:40 Urine Urobilinogen 0.2 E.U./dL (0.2 - 1.0) 11/26/16 11:40 Ur Leukocyte Esterase NEGATIVE (NEGATIVE) 11/26/16 11:40 Urine RBC 0-2 /hpf (0-5) H 11/26/16 11:40 Urine WBC 0-2 /hpf (0-5) 11/26/16 11:40 Ur Epithelial Cells OCCASIONAL /lpf (FEW) 11/26/16 11:40 Urine Bacteria FEW /hpf (NONE SEEN) 11/26/16 11:40 Urine Mucus FEW /lpf (FEW) 11/26/16 11:40 Vancomycin Trough 14.2 ug/mL (-) 11/29/16 19:00 Blood Type O POSITIVE 11/25/16 17:05 Antibody Screen NEGATIVE 11/25/16 17:05 - Physical Exam Vitals and I&O: Vital Signs Temp 98.4 F 11/30/16 03:56 Pulse 70 11/30/16 11:35 Resp 20 11/30/16 11:35 BP 107/69 11/30/16 03:56 Pulse Ox 97 11/30/16 11:35 Intake & Output 11/29/16 11/30/16 11/30/16 18:59 06:59 18:59 Intake Total 1263.5 814.75 0 Balance 1263.5 814.75 0 Intake: Intake, IV Amount 1263.5 234.75 0 D5-0.45NS 1,000 ml @ 70 913.5 mls/hr IV .[id number] [facility] Rx #:[id number] Levetiracetam 500mg/100mL 100 500 mg In 100 ml @ 400 mls/hr IV Q12H [facility] Rx#: [id number] Levofloxacin 500mg/100mL 100 500 mg In 100 ml @ 100 mls/hr IV Q24HR [facility] Rx#: [id number] Vancomycin HCl 1.25 gm In 250 134.75 0 Sodium Chloride 0.9% 250 ml @ 165 mls/hr IV Q12HR @0800,2000 [facility] Rx#: [id number] Tube Feeding 580 Other: # Voids 4 3 Active Medications: Current Medications Acetaminophen (Tylenol) 650 mg PO Q4HR PRN PRN Reason: Pain or Fever >101 Stop: 01/24/17 20:52 Al Hydrox/Mg Hydrox/Simethicone (Maalox) 30 ml PO Q6HR PRN PRN Reason: Constipation Stop: 01/24/17 20:49 Albuterol/Ipratropium (Duoneb Neb) 3 ml HHN QIDRT [facility] Stop: 01/28/17 14:59 Last Admin: 11/30/16 11:32 Dose: 3 ml Albuterol/Ipratropium (Duoneb Neb) 3 ml HHN Q2HRT PRN PRN Reason: Shortness of Breath or Wheeze Stop: 01/24/17 20:49 Docusate Sodium (Colace) 100 mg PO DAILY [facility] Stop: 01/25/17 08:59 Last Admin: 11/30/16 09:41 Dose: 100 mg Donepezil HCl (Aricept) 10 mg PO DAILY [facility] Stop: 01/25/17 08:59 Last Admin: 11/30/16 09:42 Dose: 10 mg Guaifenesin (Robitussin) 200 mg PO Q4HR PRN PRN Reason: Cough or Congestion Stop: 01/28/17 12:01 Last Admin: 11/29/16 14:05 Dose: 200 mg Levofloxacin (Levaquin Pb) 500 mg in 100 mls @ 100 mls/hr IV Q24HR [facility] Stop: 01/24/17 20:59 Last Infusion: 11/29/16 23:52 Dose: Infused Levetiracetam (Keppra Pb) 500 mg in 100 mls @ 400 mls/hr IV Q12H [facility] Stop: 01/25/17 16:29 Last Admin: 11/30/16 05:17 Dose: 100 mls/hr Vancomycin HCl 1.25 gm/ Sodium (Chloride) 250 mls @ 165 mls/hr IV Q12HR@0800, 2000 [facility] Stop: 01/27/17 19:59 Last Admin: 11/30/16 09:41 Dose: 165 mls/hr Dextrose/Sodium Chloride (D5-0.45ns) 1,000 mls @ 70 mls/hr IV .[id number] [facility] Stop: 01/27/17 10:14 Last Admin: 11/29/16 17:03 Dose: 70 mls/hr Lorazepam (Ativan) 1 mg IV Q4HR PRN; Protocol PRN Reason: Seizure Stop: 01/24/17 20:49 Midodrine (Proamatine) 5 mg PO TID [facility] Stop: 01/27/17 13:59 Last Admin: 11/30/16 09:41 Dose: 5 mg Miscellaneous (Vancomycin Iv Per Pharmacy) 1 ea [facility] PRN ANGELICA Stop: 01/24/17 20:59 Miscellaneous (Vte Chemical Prophylaxis Screen/ Admission) 1 ea [facility] PRN PRN PRN Reason: PROTOCOL Stop: 01/25/17 10:59 Morphine Sulfate (Morphine) 2 mg IVP Q4HR PRN PRN Reason: Pain (Severe) Stop: 01/24/17 20:49 Ondansetron HCl (Zofran) 4 mg IV Q8H PRN PRN Reason: Nausea / Vomiting Stop: 01/24/17 20:52 Last Admin: 11/26/16 02:52 Dose: 4 mg Pantoprazole Sodium (Protonix) 40 mg IVP BID ANGELICA Stop: 01/25/17 08:59 Last Admin: 11/30/16 09:42 Dose: 40 mg Zolpidem Tartrate (Ambien) 10 mg PO HS PRN PRN Reason: Insomnia Stop: 01/24/17 20:49 General: alert HEENT: NC/AT Lungs: congested Cardiovascular: Normal S1, Normal S2, without murmur Abdomen: soft non-tender, non-distended, positive bowel sound Internal Medicine Assmt/Plan - Assessment Assessment: Upper GI Bleed Possible sepsis COPD ASTHMA ENCEPHALOPATHY - Plan Plan: continue ivabx bronchodilators monitor h/h ivf for hydration
[2016-11-30] MEDS ORDERED: Potassium Chloride Elixir 20 mEq /15 mL UDC GT ONE (15:30)
[2016-11-30] MEDS: Levofloxacin 500mg/100mL 500 MG/100 ML BAG IV SCH (21:30)
[2016-12-01] MEDS: guaiFENesin 200 MG/10 ML UDC PO PRN ×2 (00:15→05:06)
[2016-12-01] MEDS: Levetiracetam 500mg/100mL 500 MG/100 ML BAG IV SCH ×2 (04:37→16:55)
[2016-12-01 05:53] LABS: % BASOPHILS 0.3 % (0.0-2.0); % EOSINOPHILS 5.7 % (0.0-5.0); % LYMPHOCYTES 27.5 % (20.0-50.0); % MONOCYTES 11.1 % (2.0-10.0); % NEUTROPHILS 55.4 % (40.0-80.0); HEMATOCRIT 33.2 % (39.0-49.0); HEMOGLOBIN 11.2 gm/dL (12.6-17.4); MEAN CELL VOLUME 96.6 fl (80-99); MEAN CORPUSCULAR HEMOGLOBIN 32.7 pg (27.0-31.0); MEAN CORPUSCULAR HGB CONC 33.8 pg (28.0-36.0); MEAN PLATELET VOLUME 8.3 fl; NEUTROPHILE ABSOLUTE 4.3 Th/cmm (1.8-8.0); PLATELET COUNT 172 Th/cmm (150-400); RED BLOOD COUNT 3.44 Mil/cmm (3.80-5.80); RED CELL DISTRIBUTION WIDTH 11.8 % (11.5-20.0)
[2016-12-01 06:00] LABS: WHITE BLOOD COUNT 7.6 Th/cmm (4.8-10.8)
[2016-12-01 06:04] LABS: ANION GAP 3.3 (7.0-16.0); BUN - UREA NITROGEN 8 mg/dL (7-25); BUN/CREATININE RATIO 13.3; CALCIUM SERUM 8.9 mg/dL (8.6-10.3); CHLORIDE 109 mEq/L (98-107); CREATININE - SERUM 0.6 mg/dL (0.7-1.3); GLUCOSE 101 mg/dL (70-105); POTASSIUM SERUM 4.3 mEq/L (3.5-5.1); SODIUM SERUM 137 mEq/L (136-145)
[2016-12-01] MEDS: Albuterol/Ipratropium Neb 3 ML AERS HHN SCH ×4 (07:43→19:16)
[2016-12-01] MEDS: D5-0.45NS 1,000 ML IV SCH (10:59)
--- NOTE | 2016-12-01 13:04 | Internal Medicine Prog Note ---
Internal Medicine Subjective - Subjective Patient seen and examined:: with staff, chart reviewed Patient is:: asleep, non-interactive Per staff patient is:: no adverse event, noncompliant, confused Internal Medicine Objective - Results Result Diagrams: 12/01/16 05:23 12/01/16 05:23 Recent Labs: Laboratory Last Values WBC 7.6 Th/cmm (4.8-10.8) D 12/01/16 05:23 RBC 3.44 Mil/cmm (3.80-5.80) L 12/01/16 05:23 Hgb 11.2 gm/dL (12.6-17.4) L 12/01/16 05:23 Hct 33.2 % (39.0-49.0) L 12/01/16 05:23 MCV 96.6 fl (80-99) 12/01/16 05:23 MCH 32.7 pg (27.0-31.0) H 12/01/16 05:23 MCHC Differential 33.8 pg (28.0-36.0) 12/01/16 05:23 RDW 11.8 % (11.5-20.0) 12/01/16 05:23 Plt Count 172 Th/cmm (150-400) 12/01/16 05:23 MPV 8.3 fl 12/01/16 05:23 Neutrophils % 55.4 % (40.0-80.0) 12/01/16 05:23 Band Neutrophils % 24 % (0-10) H 11/25/16 17:05 Lymphocytes % 27.5 % (20.0-50.0) 12/01/16 05:23 Monocytes % 11.1 % (2.0-10.0) H 12/01/16 05:23 Eosinophils % 5.7 % (0.0-5.0) H 12/01/16 05:23 Basophils % 0.3 % (0.0-2.0) 12/01/16 05:23 Neutrophils (Manual) 71 % (40-80) 11/25/16 17:05 Lymphocytes 1 % (20-50) L 11/25/16 17:05 Monocytes 4 % (2-10) 11/25/16 17:05 Eosinophils 0 % (0-5) 11/25/16 17:05 Platelet Estimate ADEQUATE (NORMAL) 11/25/16 17:05 Platelet Morphology NORMAL (NORMAL) 11/25/16 17:05 RBC Morph Micro Appear NORMAL (NORMAL) 11/25/16 17:05 PT 12.2 SECONDS (9.5-11.5) H 11/27/16 04:49 INR 1.21 (0.5-1.4) 11/27/16 04:49 PTT (Actin FS) 40.2 SECONDS (26.0-38.0) H 11/27/16 04:49 Sodium 137 mEq/L (136-145) 12/01/16 05:23 Potassium 4.3 mEq/L (3.5-5.1) 12/01/16 05:23 Chloride 109 mEq/L (98-107) H 12/01/16 05:23 Carbon Dioxide 29.0 mEq/L (21.0-31.0) 12/01/16 05:23 Anion Gap 3.3 (7.0-16.0) L 12/01/16 05:23 BUN 8 mg/dL (7-25) 12/01/16 05:23 Creatinine 0.6 mg/dL (0.7-1.3) L 12/01/16 05:23 Est GFR ( Amer) > 60.0 ml/min 12/01/16 05:23 Est GFR (Non-Af Amer) > 60.0 ml/min 12/01/16 05:23 BUN/Creatinine Ratio 13.3 12/01/16 05:23 Glucose 101 mg/dL (70-105) 12/01/16 05:23 POC Glucose 93 MG/DL (70 - 105) 11/27/16 07:00 Whole Bld Lactic Acid 2.32 mmol/L (0.60-2.00) H* 11/25/16 22:15 Calcium 8.9 mg/dL (8.6-10.3) 12/01/16 05:23 Total Bilirubin 1.0 mg/dL (0.3-1.0) 11/27/16 04:49 AST 20 U/L (13-39) 11/27/16 04:49 ALT 23 U/L (7-52) 11/27/16 04:49 Alkaline Phosphatase 43 U/L (34-104) 11/27/16 04:49 Ammonia 54 umol/L (16-53) H 11/30/16 06:00 Troponin I 0.01 ng/mL (0.01-0.05) 11/25/16 17:05 B-Natriuretic Peptide 143.0 pg/mL (5.0-100.0) H 11/30/16 06:00 Total Protein 5.4 gm/dL (6.0-8.3) L 11/27/16 04:49 Albumin 2.6 gm/dL (4.2-5.5) L 11/27/16 04:49 Globulin 2.8 gm/dL 11/27/16 04:49 Albumin/Globulin Ratio 0.9 (1.0-1.8) L 11/27/16 04:49 Vitamin B12 1161 pg/mL (211-946) H 11/26/16 04:52 Folic Acid 13.3 ng/mL (>3.0) 11/26/16 04:52 Urine Source RANDOM 11/26/16 11:40 Urine Color YELLOW 11/26/16 11:40 Urine Clarity CLEAR (CLEAR) 11/26/16 11:40 Urine pH 6.0 11/26/16 11:40 Ur Specific [place] 1.020 (1.005-1.030) 11/26/16 11:40 Urine Protein TRACE mg/dL (NEGATIVE) 11/26/16 11:40 Urine Glucose (UA) NEGATIVE mg/dL (NEGATIVE) 11/26/16 11:40 Urine Ketones TRACE mg/dL (NEGATIVE) 11/26/16 11:40 Urine Blood TRACE (NEGATIVE) 11/26/16 11:40 Urine Nitrate NEGATIVE (NEGATIVE) 11/26/16 11:40 Urine Bilirubin NEGATIVE (NEGATIVE) 11/26/16 11:40 Urine Urobilinogen 0.2 E.U./dL (0.2 - 1.0) 11/26/16 11:40 Ur Leukocyte Esterase NEGATIVE (NEGATIVE) 11/26/16 11:40 Urine RBC 0-2 /hpf (0-5) H 11/26/16 11:40 Urine WBC 0-2 /hpf (0-5) 11/26/16 11:40 Ur Epithelial Cells OCCASIONAL /lpf (FEW) 11/26/16 11:40 Urine Bacteria FEW /hpf (NONE SEEN) 11/26/16 11:40 Urine Mucus FEW /lpf (FEW) 11/26/16 11:40 Vancomycin Trough 14.2 ug/mL (10-20) 11/29/16 19:00 Blood Type O POSITIVE 11/25/16 17:05 Antibody Screen NEGATIVE 11/25/16 17:05 - Physical Exam Vitals and I&O: Vital Signs Temp 97.8 F 12/01/16 11:43 Pulse 65 12/01/16 12:05 Resp 18 12/01/16 12:05 BP 104/48 12/01/16 11:43 Pulse Ox 97 12/01/16 12:05 Intake & Output 11/30/16 12/01/16 12/01/16 18:59 06:59 18:59 Intake Total 1920 250 Output Total 0 Balance 1920 250 Intake: Intake, IV Amount 1350 250 D5-0.45NS 1,000 ml @ 70 1000 mls/hr IV .[id number] [facility] Rx #:[id number] Levetiracetam 500mg/100mL 100 500 mg In 100 ml @ 400 mls/hr IV Q12H [facility] Rx#: [id number] Vancomycin HCl 1.25 gm In 250 250 Sodium Chloride 0.9% 250 ml @ 165 mls/hr IV Q12HR @0800,2000 [facility] Rx#: [id number] Tube Feeding 480 Other 90 Output: Stool 0 Other: # Voids 3 3 Stool Characteristics Soft Active Medications: Current Medications Acetaminophen (Tylenol) 650 mg PO Q4HR PRN PRN Reason: Pain or Fever >101 Stop: 01/24/17 20:52 Al Hydrox/Mg Hydrox/Simethicone (Maalox) 30 ml PO Q6HR PRN PRN Reason: Constipation Stop: 01/24/17 20:49 Albuterol/Ipratropium (Duoneb Neb) 3 ml HHN QIDRT [facility] Stop: 01/28/17 14:59 Last Admin: 12/01/16 12:10 Dose: 3 ml Albuterol/Ipratropium (Duoneb Neb) 3 ml HHN Q2HRT PRN PRN Reason: Shortness of Breath or Wheeze Stop: 01/24/17 20:49 Docusate Sodium (Colace) 100 mg PO DAILY [facility] Stop: 01/25/17 08:59 Last Admin: 12/01/16 08:37 Dose: 100 mg Donepezil HCl (Aricept) 10 mg PO DAILY [facility] Stop: 01/25/17 08:59 Last Admin: 12/01/16 08:37 Dose: 10 mg Guaifenesin (Robitussin) 200 mg PO Q4HR PRN PRN Reason: Cough or Congestion Stop: 01/28/17 12:01 Last Admin: 12/01/16 05:06 Dose: 200 mg Levofloxacin (Levaquin Pb) 500 mg in 100 mls @ 100 mls/hr IV Q24HR [facility] Stop: 01/24/17 20:59 Last Admin: 11/30/16 21:30 Dose: 100 mls/hr Levetiracetam (Keppra Pb) 500 mg in 100 mls @ 400 mls/hr IV Q12H [facility] Stop: 01/25/17 16:29 Last Admin: 12/01/16 04:37 Dose: 400 mls/hr Vancomycin HCl 1.25 gm/ Sodium (Chloride) 250 mls @ 165 mls/hr IV Q12HR@0800, 2000 [facility] Stop: 01/27/17 19:59 Last Admin: 12/01/16 08:38 Dose: 165 mls/hr Dextrose/Sodium Chloride (D5-0.45ns) 1,000 mls @ 70 mls/hr IV .[id number] [facility] Stop: 01/27/17 10:14 Last Admin: 12/01/16 10:59 Dose: 70 mls/hr Lorazepam (Ativan) 1 mg IV Q4HR PRN; Protocol PRN Reason: Seizure Stop: 01/24/17 20:49 Midodrine (Proamatine) 5 mg PO TID [facility] Stop: 01/27/17 13:59 Last Admin: 12/01/16 08:38 Dose: 5 mg Miscellaneous (Vancomycin Iv Per Pharmacy) 1 ea [facility] PRN [facility] Stop: 01/24/17 20:59 Miscellaneous (Vte Chemical Prophylaxis Screen/ Admission) 1 ea [facility] PRN PRN PRN Reason: PROTOCOL Stop: 01/25/17 10:59 Morphine Sulfate (Morphine) 2 mg IVP Q4HR PRN PRN Reason: Pain (Severe) Stop: 01/24/17 20:49 Ondansetron HCl (Zofran) 4 mg IV Q8H PRN PRN Reason: Nausea / Vomiting Stop: 01/24/17 20:52 Last Admin: 11/26/16 02:52 Dose: 4 mg Pantoprazole Sodium (Protonix) 40 mg IVP BID [facility] Stop: 01/25/17 08:59 Last Admin: 12/01/16 08:37 Dose: 40 mg Zolpidem Tartrate (Ambien) 10 mg PO HS PRN PRN Reason: Insomnia Stop: 01/24/17 20:49 General: lethargic, demented Neck: Supple, No JVD Lungs: congested, rales Cardiovascular: RRR, Normal S1, Normal S2 Abdomen: soft non-tender, globular Extremities: excoriation, contracture Neurological: no change Internal Medicine Assmt/Plan - Assessment Assessment: pmn Upper GI Bleed Possible sepsis COPD ASTHMA ENCEPHALOPATHY - Plan Plan: cont on iv abx will send sputum gs and c\s o2 bronchodilator dw rn staff will refer to [facility]
[2016-12-01] MEDS: Levofloxacin 500mg/100mL 500 MG/100 ML BAG IV SCH (20:05)
[2016-12-02] MEDS: Levetiracetam 500mg/100mL 500 MG/100 ML BAG IV SCH ×2 (04:20→17:09)
[2016-12-02] MEDS: D5-0.45NS 1,000 ML IV SCH (05:43)
[2016-12-02] MEDS: Albuterol/Ipratropium Neb 3 ML AERS HHN SCH ×4 (07:48→19:07)
--- NOTE | 2016-12-02 12:26 | Internal Medicine Prog Note ---
Internal Medicine Subjective - Subjective Service Date: 12/02/16 Patient seen and examined:: with staff Patient is:: awake Patient Complaints of:: congestion Internal Medicine Objective - Results Result Diagrams: 12/01/16 05:23 12/01/16 05:23 Recent Labs: Laboratory Last Values WBC 7.6 Th/cmm (4.8-10.8) D 12/01/16 05:23 RBC 3.44 Mil/cmm (3.80-5.80) L 12/01/16 05:23 Hgb 11.2 gm/dL (12.6-17.4) L 12/01/16 05:23 Hct 33.2 % (39.0-49.0) L 12/01/16 05:23 MCV 96.6 fl (80-99) 12/01/16 05:23 MCH 32.7 pg (27.0-31.0) H 12/01/16 05:23 MCHC Differential 33.8 pg (28.0-36.0) 12/01/16 05:23 RDW 11.8 % (11.5-20.0) 12/01/16 05:23 Plt Count 172 Th/cmm (150-400) 12/01/16 05:23 MPV 8.3 fl 12/01/16 05:23 Neutrophils % 55.4 % (40.0-80.0) 12/01/16 05:23 Band Neutrophils % 24 % (0-10) H 11/25/16 17:05 Lymphocytes % 27.5 % (20.0-50.0) 12/01/16 05:23 Monocytes % 11.1 % (2.0-10.0) H 12/01/16 05:23 Eosinophils % 5.7 % (0.0-5.0) H 12/01/16 05:23 Basophils % 0.3 % (0.0-2.0) 12/01/16 05:23 Neutrophils (Manual) 71 % (40-80) 11/25/16 17:05 Lymphocytes 1 % (20-50) L 11/25/16 17:05 Monocytes 4 % (2-10) 11/25/16 17:05 Eosinophils 0 % (0-5) 11/25/16 17:05 Platelet Estimate ADEQUATE (NORMAL) 11/25/16 17:05 Platelet Morphology NORMAL (NORMAL) 11/25/16 17:05 RBC Morph Micro Appear NORMAL (NORMAL) 11/25/16 17:05 PT 12.2 SECONDS (9.5-11.5) H 11/27/16 04:49 INR 1.21 (0.5-1.4) 11/27/16 04:49 PTT (Actin FS) 40.2 SECONDS (26.0-38.0) H 11/27/16 04:49 Sodium 137 mEq/L (136-145) 12/01/16 05:23 Potassium 4.3 mEq/L (3.5-5.1) 12/01/16 05:23 Chloride 109 mEq/L (98-107) H 12/01/16 05:23 Carbon Dioxide 29.0 mEq/L (21.0-31.0) 12/01/16 05:23 Anion Gap 3.3 (7.0-16.0) L 12/01/16 05:23 BUN 8 mg/dL (7-25) 12/01/16 05:23 Creatinine 0.6 mg/dL (0.7-1.3) L 12/01/16 05:23 Est GFR ( Amer) > 60.0 ml/min 12/01/16 05:23 Est GFR (Non-Af Amer) > 60.0 ml/min 12/01/16 05:23 BUN/Creatinine Ratio 13.3 12/01/16 05:23 Glucose 101 mg/dL (70-105) 12/01/16 05:23 POC Glucose 93 MG/DL (70 - 105) 11/27/16 07:00 Whole Bld Lactic Acid 2.32 mmol/L (0.60-2.00) H* 11/25/16 22:15 Calcium 8.9 mg/dL (8.6-10.3) 12/01/16 05:23 Total Bilirubin 1.0 mg/dL (0.3-1.0) 11/27/16 04:49 AST 20 U/L (13-39) 11/27/16 04:49 ALT 23 U/L (7-52) 11/27/16 04:49 Alkaline Phosphatase 43 U/L (34-104) 11/27/16 04:49 Ammonia 54 umol/L (16-53) H 11/30/16 06:00 Troponin I 0.01 ng/mL (0.01-0.05) 11/25/16 17:05 B-Natriuretic Peptide 143.0 pg/mL (5.0-100.0) H 11/30/16 06:00 Total Protein 5.4 gm/dL (6.0-8.3) L 11/27/16 04:49 Albumin 2.6 gm/dL (4.2-5.5) L 11/27/16 04:49 Globulin 2.8 gm/dL 11/27/16 04:49 Albumin/Globulin Ratio 0.9 (1.0-1.8) L 11/27/16 04:49 Vitamin B12 1161 pg/mL (211-946) H 11/26/16 04:52 Folic Acid 13.3 ng/mL (>3.0) 11/26/16 04:52 Urine Source RANDOM 11/26/16 11:40 Urine Color YELLOW 11/26/16 11:40 Urine Clarity CLEAR (CLEAR) 11/26/16 11:40 Urine pH 6.0 11/26/16 11:40 Ur Specific [place] 1.020 (1.005-1.030) 11/26/16 11:40 Urine Protein TRACE mg/dL (NEGATIVE) 11/26/16 11:40 Urine Glucose (UA) NEGATIVE mg/dL (NEGATIVE) 11/26/16 11:40 Urine Ketones TRACE mg/dL (NEGATIVE) 11/26/16 11:40 Urine Blood TRACE (NEGATIVE) 11/26/16 11:40 Urine Nitrate NEGATIVE (NEGATIVE) 11/26/16 11:40 Urine Bilirubin NEGATIVE (NEGATIVE) 11/26/16 11:40 Urine Urobilinogen 0.2 E.U./dL (0.2 - 1.0) 11/26/16 11:40 Ur Leukocyte Esterase NEGATIVE (NEGATIVE) 11/26/16 11:40 Urine RBC 0-2 /hpf (0-5) H 11/26/16 11:40 Urine WBC 0-2 /hpf (0-5) 11/26/16 11:40 Ur Epithelial Cells OCCASIONAL /lpf (FEW) 11/26/16 11:40 Urine Bacteria FEW /hpf (NONE SEEN) 11/26/16 11:40 Urine Mucus FEW /lpf (FEW) 11/26/16 11:40 Vancomycin Trough 18.5 ug/mL (08-27) 12/02/16 07:05 Blood Type O POSITIVE 11/25/16 17:05 Antibody Screen NEGATIVE 11/25/16 17:05 - Physical Exam Vitals and I&O: Vital Signs Temp 98.2 F 12/02/16 11:57 Pulse 60 12/02/16 11:57 Resp 19 12/02/16 11:57 BP 130/77 12/02/16 11:57 Pulse Ox 95 12/02/16 11:57 Intake & Output 12/01/16 12/02/16 12/02/16 18:59 06:59 18:59 Intake Total 750 2130 Balance 750 2130 Intake: Intake, IV Amount 350 1450 D5-0.45NS 1,000 ml @ 70 1000 mls/hr IV .[id number] [facility] Rx #:[id number] Levetiracetam 500mg/100mL 100 100 500 mg In 100 ml @ 400 mls/hr IV Q12H [facility] Rx#: [id number] Levofloxacin 500mg/100mL 100 500 mg In 100 ml @ 100 mls/hr IV Q24HR [facility] Rx#: [id number] Vancomycin HCl 1.25 gm In 250 250 Sodium Chloride 0.9% 250 ml @ 165 mls/hr IV Q12HR @0800,2000 [facility] Rx#: [id number] Tube Feeding 400 580 Other 100 Other: # Voids 4 3 Stool Characteristics Soft Soft Soft Active Medications: Current Medications Acetaminophen (Tylenol) 650 mg PO Q4HR PRN PRN Reason: Pain or Fever >101 Stop: 01/24/17 20:52 Al Hydrox/Mg Hydrox/Simethicone (Maalox) 30 ml PO Q6HR PRN PRN Reason: Constipation Stop: 01/24/17 20:49 Albuterol/Ipratropium (Duoneb Neb) 3 ml HHN QIDRT [facility] Stop: 01/28/17 14:59 Last Admin: 12/02/16 11:11 Dose: 3 ml Albuterol/Ipratropium (Duoneb Neb) 3 ml HHN Q2HRT PRN PRN Reason: Shortness of Breath or Wheeze Stop: 01/24/17 20:49 Docusate Sodium (Colace) 100 mg PO DAILY [facility] Stop: 01/25/17 08:59 Last Admin: 12/02/16 09:15 Dose: 100 mg Donepezil HCl (Aricept) 10 mg PO DAILY [facility] Stop: 01/25/17 08:59 Last Admin: 12/02/16 09:15 Dose: 10 mg Guaifenesin (Robitussin) 200 mg PO Q4HR PRN PRN Reason: Cough or Congestion Stop: 01/28/17 12:01 Last Admin: 12/01/16 05:06 Dose: 200 mg Levofloxacin (Levaquin Pb) 500 mg in 100 mls @ 100 mls/hr IV Q24HR [facility] Stop: 01/24/17 20:59 Last Infusion: 12/01/16 21:05 Dose: Infused Levetiracetam (Keppra Pb) 500 mg in 100 mls @ 400 mls/hr IV Q12H [facility] Stop: 01/25/17 16:29 Last Infusion: 12/02/16 05:20 Dose: Infused Dextrose/Sodium Chloride (D5-0.45ns) 1,000 mls @ 70 mls/hr IV .[id number] [facility] Stop: 01/27/17 10:14 Last Admin: 12/02/16 05:43 Dose: 70 mls/hr Vancomycin HCl 1.25 gm/ Sodium (Chloride) 250 mls @ 165 mls/hr IV Q12H [facility] Stop: 01/31/17 20:59 Lorazepam (Ativan) 1 mg IV Q4HR PRN; Protocol PRN Reason: Seizure Stop: 01/24/17 20:49 Midodrine (Proamatine) 5 mg PO TID [facility] Stop: 01/27/17 13:59 Last Admin: 12/02/16 09:14 Dose: 5 mg Miscellaneous (Vancomycin Iv Per Pharmacy) 1 ea [facility] PRN ANGELICA Stop: 01/24/17 20:59 Miscellaneous (Vte Chemical Prophylaxis Screen/ Admission) 1 ea [facility] PRN PRN PRN Reason: PROTOCOL Stop: 01/25/17 10:59 Morphine Sulfate (Morphine) 2 mg IVP Q4HR PRN PRN Reason: Pain (Severe) Stop: 01/24/17 20:49 Ondansetron HCl (Zofran) 4 mg IV Q8H PRN PRN Reason: Nausea / Vomiting Stop: 01/24/17 20:52 Last Admin: 11/26/16 02:52 Dose: 4 mg Pantoprazole Sodium (Protonix) 40 mg IVP BID ANGELICA Stop: 01/25/17 08:59 Last Admin: 12/02/16 09:14 Dose: 40 mg Zolpidem Tartrate (Ambien) 10 mg PO HS PRN PRN Reason: Insomnia Stop: 01/24/17 20:49 General: weak, alert HEENT: NC/AT, PERRLA Lungs: ronchi Cardiovascular: RRR, Normal S1, Normal S2, without murmur Abdomen: soft non-tender, non-distended Neurological: no change Internal Medicine Assmt/Plan - Assessment Assessment: Upper GI Bleed Possible sepsis COPD ASTHMA ENCEPHALOPATHY - Plan Plan: ltac eval continue ivabx bronchodilators monitor h/h ivf for hydration
[2016-12-02] MEDS: guaiFENesin 200 MG/10 ML UDC PO PRN (17:09)
--- NOTE | 2016-12-23 03:25 | Discharge Summary ---
Dictated for Dr. Luis Fernando Gonzalez. FINAL DIAGNOSES: Upper gastrointestinal bleed, possible sepsis, dementia, gastroesophageal reflux disease, chronic obstructive pulmonary disease, and seizures. HISTORY OF PRESENT ILLNESS: This is a 66-year-old male who is a resident of [facility], was sent to [facility] for episode of coffee-ground emesis x 4. PHYSICAL EXAMINATION: GENERAL: The patient is well developed, well nourished, in no acute distress. VITAL SIGNS: Stable. HEENT: Head is normocephalic and atraumatic. NECK: Supple. No mass. LUNGS: Clear. HEART: Regular rate and rhythm. No murmurs, rubs, or gallops. ABDOMEN: Soft, nontender, and nondistended. Positive bowel sounds in all 4 quadrants. HOSPITAL COURSE: During the hospital stay, the patient was admitted to telemetry unit. The patient had a consultation with Dr. Pinto. The patient was kept on IV Keppra. On 11/27/2016, the patient had an EGD done and they found esophagitis, Jacque-Godinez tear, gastritis, and intact PEG tube. The patient was kept on IV fluids for hydration. The patient also received wound care as well. The patient had a sputum culture and it was negative for any growth as well as blood cultures and it was negative. Due to the need of IV antibiotics, the patient was discharged to [facility]. CONDITION UPON DISCHARGE: Fair. DISPOSITION: [facility]. JOB# [id number]
== END 2016-12-02 20:05 | disposition short-term general hospital (02) | DRG 871 ==
LOC: ER 16:40 → ICU 19:31 → TELE 20:00
PROVIDERS: ADMIT Internal Medicine; ATTEND Internal Medicine
PROC: 0DB68ZX Excision of Stomach, Via Natural or Artificial Opening Endoscopic, Diagnostic (ICD-10-PCS; principal; 2016-11-27)
PROC: 0DB58ZX Excision of Esophagus, Via Natural or Artificial Opening Endoscopic, Diagnostic (ICD-10-PCS; 2016-11-27)
DX: A41.9 Sepsis, unspecified organism (principal); J18.9 Pneumonia, unspecified organism; G93.40 Encephalopathy, unspecified; K22.6 Gastro-esophageal laceration-hemorrhage syndrome; F03.90 Unspecified dementia, unspecified severity, without behavioral disturbance, psychotic disturbance, mood disturbance, and anxiety; G20 Parkinson's disease; K92.2 Gastrointestinal hemorrhage, unspecified; K21.0 Gastro-esophageal reflux disease with esophagitis; J44.9 Chronic obstructive pulmonary disease, unspecified; G40.909 Epilepsy, unspecified, not intractable, without status epilepticus; M19.90 Unspecified osteoarthritis, unspecified site; D64.9 Anemia, unspecified; J45.909 Unspecified asthma, uncomplicated; K27.9 Peptic ulcer, site unspecified, unspecified as acute or chronic, without hemorrhage or perforation; I73.9 Peripheral vascular disease, unspecified; K29.70 Gastritis, unspecified, without bleeding; Z93.1 Gastrostomy status
CPT/HCPCS: 36415-UA; 71010-TC; 80048-TC; 80053-TC; 80202-TC; 81001-TC; 82140-TC; 82607-90; 82746-90; 82948-90; 83605; 83880-TC; 84484-TC; 85007-TC; 85025-TC; 85027-TC; 85610-TC; 86850-TC; 86900-TC; 86901-TC; 87070; 88305-90; 88312-90; 88313-90; 90779; 93005; 94640; 94760; A4217; C9113; J1956; J2405; J2704; J3370; J7030; J7040; J7613; Z7610

== ENCOUNTER 2017-05-28 08:34 | Emergency (ER) | payer MEDICARE, MEDICAID ==
--- NOTE | 2017-05-28 08:58 | ED Physician Chart ---
Chief Complaint/HPI - Patient Information Date Seen:: 05/28/17 Time Seen:: 08:58 Chief Complaint:: G-TUBE MALFUNCTION History of Present Illness:: THIS IS A CHRONICALLY ILL 66 YO MALE SENT FROM A PENITENTIARY FOR EVALUATION, TREATMENT AND REPLACEMENT OF THE G-TUBE. THE PATIENT ALSO HAS A COUGH WITH CHEST CONGESTION. HE IS DEMENTED AND HAS BILATERAL SPASTIC PARALYSIS OF EXTREMITIES. Allergies:: Allergies Allergy/AdvReac Type Severity Reaction Status Date / Time No Known Allergies Allergy Verified 04/22/17 15:56 Vitals:: Vital Signs - 8 hr 05/28/17 08:43 Temp 97.8 F HR 68 RR 16 BP 108/62 O2 Sat % 96 Historian:: EMS, Medical Records Review:: Nurse's Note Reviewed, Transfer documents Reviewed, Patient unable to respond Review of Systems - Review of Systems General/Constitutional: No fever, No chills, No weight loss, No weakness, No diaphoresis, No edema, No loss of appetite, Other (THIS PATIENT IS UNABLE TO GIVE A REVIEW OF SYSTEMS.) Skin: No skin lesions, No rash, No bruising Head: No headache, No light-headedness Eyes: No loss of vision, No pain, No diplopia ENT: No earache, No nasal drainage, No sore throat, No tinnitus Neck: No neck pain, No swelling, No thyromegaly, No stiffness, No mass noted Cardio Vascular: No chest pain, No palpitations, No PND, No orthopnea, No edema Pulmonary: No SOB, No cough, No sputum, No wheezing GI: No nausea, No vomiting, No diarrhea, No pain, No melena, No hematochezia, No constipation, No hematemesis G/U: No dysuria, No frequency, No hematuria Musculoskeletal: No bone or joint pain, No back pain, No muscle pain Endocrine: No polyuria, No polydipsia Psychiatric: No prior psych history, No depression, No anxiety, No suicidal ideation Hematopoietic: No bruising, No lymphadenopathy Allergic/Immuno: No urticaria, No angioedema Neurological: No syncope, No focal symptoms, No weakness, No paresthesia, No headache, No seizure, No dizziness, No confusion, No vertigo Past Medical History - Past Medical History Obtainable: No Past Medical History: Asthma/COPD, CVA/TIA, Dementia, Other (PARKINSON'S DISEASE ) Social History: Non Smoker, No Alcohol, No Drug Use Surgical History: PEG/GTube Family Medical History - Family Member Mother History Unknown: Yes Ethnicity: Unknown Living Status: Unknown Hx Family Cancer: No Hx Family Coronary Artery Disease: No Hx Family Congestive Heart Failure: No Hx Family Hypertension: No Hx Family Stroke: No Hx Family Diabetes: No Hx Family Seizures: No Hx Family Dementia: No Hx Family AIDS: No Hx Family HIV: No Hx Family COPD: No Hx Family Hepatitis: No Hx Family Psychiatric Problems: No Hx Family Tuberculosis: No Physical Exam - Physical Examination General/Constitutional: Awake, Well-developed, well-nourished, Alert, No distress, GCS 15, Non-toxic appearing, Ambulatory Other Gen/Cons comments:: THIS PATIENT IS RESPONSIVE TO ONLY DEEP PAIN STIMULI Head: Atraumatic Eyes: Lids, conjuctiva normal, PERRL, EOMI Skin: Nl inspection, No rash, No skin lesions, No ecchymosis, Well hydrated, No lymphadenopathy ENMT: External ears, nose nl, Nasal exam nl, Lips, teeth, gums nl Neck: Nontender, Full ROM w/o pain, No JVD, No nuchal rigidity, No bruit, No mass, No stridor Respiratory: Nl effort/Exclusion, Clear to Auscultation, No Wheeze/Rhonchi/Rales Cardio Vascular: RRR, No murmur, gallop, rubs, NL S1 S2 GI: No tenderness/rebounding/guarding, No organomegaly, No hernia, Normal BS's, Nondistended, No mass/bruits, No McBurney tenderness : No CVA tenderness Extremities: No tenderness or effusion, Full ROM, normal strength in all extremities, No edema, Normal digits & nails Neuro/Psych: Alert/oriented, DTR's symmetric, Normal sensory exam, Normal motor strength, Judgement/insight normal, Mood normal, Normal gait, No focal deficits Misc: normal gait, Normal back, No paraspinal tenderness Labs/Radiology/EKG Results - Radiology Results Results: CHEST -X-RAY = NAD KUB = G-TUBE IN THE STOMACH - EKG Interpretations EKG Time:: 08:46 Rate & Rhythm: RATE = 66 SINUS [place]: LEFT AXIS Assessment - Assessment General Assessment: G-TUBE REPLACEMENT ED Septic Shock - . Is Septic Shock (SBP<90, OR Lactate>4 mmol\L) present?: No - <6hrs of presentation: Vital Signs: Vital Signs - 8 hr // 08:43 Temp 97.8 F HR 68 RR 16 BP 108/62 O2 Sat % 96 Reassessment (Disposition) - Reassessment Reassessment Condition:: Improved - Diagnosis Diagnosis:: G-TUBE REPLACEMENT - Aftercare/Follow up Instructions Aftercare/Follow-Up Instructions:: Counseled pt regarding lab results/diagnosis & need follow up, Refer to Discharge Instructions, Counseled pt & family regarding lab results/diagnosis & need follow up - Patient Disposition Discharge/Transfer:: Long-Term Care - SNF ED Discharge Plan - Patient Disposition Admit/Discharge/Transfer: Discharge/Transfered to SNF Condition at Disposition: Improved
[2017-05-28 09:02] LABS: % BASOPHILS 0.1 % (0.0-2.0); % EOSINOPHILS 3.9 % (0.0-5.0); % LYMPHOCYTES 38.1 % (20.0-50.0); % MONOCYTES 9.8 % (2.0-10.0); % NEUTROPHILS 48.1 % (40.0-80.0); HEMOGLOBIN 15.8 gm/dL (12.6-17.4); MEAN CELL VOLUME 96.2 fl (80-99); MEAN CORPUSCULAR HEMOGLOBIN 32.8 pg (27.0-31.0); MEAN CORPUSCULAR HGB CONC 34.1 pg (28.0-36.0); MEAN PLATELET VOLUME 9.8 fl; NEUTROPHILE ABSOLUTE 3.4 Th/cmm (1.8-8.0); PLATELET COUNT 134 Th/cmm (150-400); RED BLOOD COUNT 4.82 Mil/cmm (3.80-5.80); RED CELL DISTRIBUTION WIDTH 13.9 % (11.5-20.0)
[2017-05-28] MEDS ORDERED: Diatrizoate Meglumine/Diatri 30 mL Sol PO ONE (09:03)
[2017-05-28 09:05] LABS: HEMATOCRIT 46.4 % (39.0-49.0); WHITE BLOOD COUNT 7.1 Th/cmm (4.8-10.8)
[2017-05-28 09:24] LABS: ALKALINE PHOSPHATASE 76 U/L (34-104); ANION GAP 8.8 (7.0-16.0); BILIRUBIN,TOTAL 0.7 mg/dL (0.3-1.0); BUN - UREA NITROGEN 25 mg/dL (7-25); BUN/CREATININE RATIO 35.7; CALCIUM SERUM 9.4 mg/dL (8.6-10.3); CARBON DIOXIDE 25.3 mEq/L (21.0-31.0); CHLORIDE 111 mEq/L (98-107); CHOLESTEROL 144 mg/dL (<200); CREATININE - SERUM 0.7 mg/dL (0.7-1.3); GLUCOSE 93 mg/dL (70-105); POTASSIUM SERUM 4.1 mEq/L (3.5-5.1); SGOT 21 U/L (13-39); SGPT/ALT 28 U/L (7-52); SODIUM SERUM 141 mEq/L (136-145); TRIGLYCERIDES 134 mg/dL (<150)
[2017-05-28 09:26] LABS: INR 1.12 (0.5-1.4); PROTHROMBIN TIME (TEST) 11.8 SECONDS (9.5-11.5)
--- NOTE | 2017-05-28 10:24 | Diagnostic Imaging Report ---
CHEST X-RAY: AP view INDICATION: Shortness of breath COMPARISON: 04/24/2017 FINDINGS: Increased bibasilar lung markings are noted. No focal consolidation or effusions. Heart size is mildly prominent. Degenerative changes of the spine are noted. IMPRESSION: Increased bibasilar lung markings which may be due to atelectasis versus scarring. No focal consolidation identified. Mild cardiomegaly.
--- NOTE | 2017-05-28 10:24 | Diagnostic Imaging Report ---
Upper GI with Gastrografin HISTORY: G-tube confirmation COMPARISON: None FINDINGS: Warehouse Traffic Supervisor view demonstrates gas distended loops of bowel, nonspecific. A percutaneous feeding tube is noted. The second image demonstrates contrast opacification of the stomach and small bowel loops. IMPRESSION: Intraluminal confirmation of patient's percutaneous gastric feeding tube.
== END 2017-05-28 10:30 ==
LOC: ER 08:34
DX: Z43.1 Encounter for attention to gastrostomy (principal); J45.909 Unspecified asthma, uncomplicated; J44.9 Chronic obstructive pulmonary disease, unspecified; Z86.73 Personal history of transient ischemic attack (TIA), and cerebral infarction without residual deficits; Z93.1 Gastrostomy status
CPT/HCPCS: 36415-UA; 71010-TC; 80053-TC; 80061-TC; 84443-TC; 84484-TC; 85025-TC; 85610-TC; 85730-TC; 86592-TC; 87070; 93005; Z7610

== ENCOUNTER 2017-08-11 11:56 | Emergency (ER) | payer MEDICAID, MEDICARE ==
[2017-08-11] MEDS ORDERED: Diatrizoate Meglumine/Diatri 30 mL Sol ONE (12:19)
--- NOTE | 2017-08-11 12:54 | Diagnostic Imaging Report ---
Upper GI with Gastrografin HISTORY: G-tube confirmation COMPARISON: Upper GI examination on 05/28/2017 FINDINGS: Product Examiner view demonstrates gaseous in the loops of bowel primarily large bowel loops The second image demonstrates contrast opacification of the stomach and small bowel loops. IMPRESSION: Intraluminal confirmation of patient's percutaneous gastric feeding tube. Possible mild ileus.
--- NOTE | 2017-08-11 13:42 | ED Physician Chart ---
ED Chief Complaint/HPI - Patient Information Date Seen:: 08/11/17 Time Seen:: 12:00 Chief Complaint:: G-Tube Dysfunction History of Present Illness:: pt presents with G-Tube Dysfunction and is here for G-Tube Replacement; no other complaints reported; no report of H/As, trauma, neck pain, C/P, SOB, Abd. Pain, A/N/V/D/C, fever, chills, or urinary s/s Allergies:: Allergies Allergy/AdvReac Type Severity Reaction Status Date / Time No Known Allergies Allergy Verified 04/22/17 15:56 Vitals:: Vital Signs - 8 hr 08/11/17 08/11/17 12:01 12:22 Temp 97.9 F HR 62 60 RR 16 16 BP 100/52 126/73 O2 Sat % 98 95 Historian:: Patient, EMS Review:: Nurse's Note Reviewed, EMS run form Reviewed, Transfer documents Reviewed ED Review of Systems - Review of Systems General/Constitutional: Fever, No chills, No weight loss, No weakness, No diaphoresis, No edema, No loss of appetite Skin: No skin lesions, No rash, No bruising Head: No headache, No light-headedness Eyes: No loss of vision, No pain, No diplopia ENT: No earache, No nasal drainage, No sore throat, No tinnitus Neck: No neck pain, No swelling, No thyromegaly, No stiffness, No mass noted Cardio Vascular: No chest pain, No palpitations, No PND, No orthopnea, No edema Pulmonary: SOB, Cough, No sputum, Wheezing GI: Nausea, Vomiting, Diarrhea, No pain, No melena, No hematochezia, No constipation, No hematemesis G/U: No dysuria, No frequency, No hematuria Musculoskeletal: No bone or joint pain, No back pain, No muscle pain Endocrine: No polyuria, No polydipsia Psychiatric: No prior psych history, No depression, No anxiety, No suicidal ideation Hematopoietic: No bruising, No lymphadenopathy Allergic/Immuno: No urticaria, No angioedema Neurological: No syncope, No focal symptoms, No weakness, No paresthesia, No headache, Seizure, No dizziness, Confusion, No vertigo ED Past Medical History - Past Medical History Obtainable: Yes Past Medical History: HTN, Asthma/COPD, Dyslipidemia, PUD/GERD, Seizures, Dementia Family History: HTN Social History: Non Smoker, No Alcohol, No Drug Use, Single, Care Facility Surgical History: PEG/GTube Psychiatricy History: Dementia Medication: Reviewed Family Medical History - Family Member Mother History Unknown: Yes Ethnicity: Unknown Living Status: Unknown Hx Family Cancer: No Hx Family Coronary Artery Disease: No Hx Family Congestive Heart Failure: No Hx Family Hypertension: No Hx Family Stroke: No Hx Family Diabetes: No Hx Family Seizures: No Hx Family Dementia: No Hx Family AIDS: No Hx Family HIV: No Hx Family COPD: No Hx Family Hepatitis: No Hx Family Psychiatric Problems: No Hx Family Tuberculosis: No ED Physical Exam - Physical Examination General/Constitutional: Awake, Well-developed, well-nourished, Alert, No distress, GCS 15, Non-toxic appearing, Ambulatory Head: Atraumatic Eyes: Lids, conjuctiva normal, PERRL, EOMI Skin: Nl inspection, No rash, No skin lesions, No ecchymosis, Well hydrated, No lymphadenopathy ENMT: External ears, nose nl, Nasal exam nl, Lips, teeth, gums nl Neck: Nontender, Full ROM w/o pain, No JVD, No nuchal rigidity, No bruit, No mass, No stridor Respiratory: Nl effort/Exclusion, Clear to Auscultation, No Wheeze/Rhonchi/Rales Cardio Vascular: RRR, No murmur, gallop, rubs, NL S1 S2 GI: No tenderness/rebounding/guarding, No organomegaly, No hernia, Normal BS's, Nondistended, No mass/bruits, No McBurney tenderness Other GI comments:: G-Tube Dysfunction : No CVA tenderness Extremities: No tenderness or effusion, Full ROM, normal strength in all extremities, No edema, Normal digits & nails Neuro/Psych: Alert/oriented, DTR's symmetric, Normal sensory exam, Normal motor strength, Judgement/insight normal, Mood normal, Normal gait, No focal deficits Misc: Normal back, No paraspinal tenderness ED Labs/Radiology/EKG Results - Radiology Results Results: Good G-Tube Placement ED Assessment - Procedures Procedures:: New G-Tube Re-Inserted successfully; no complications; good stomach sounds heard Informed Consent: Procedure/risk/benefits explained by MD: Yes ED Septic Shock - . Is Septic Shock (SBP<90, OR Lactate>4 mmol\L) present?: No - <6hrs of presentation: Vital Signs: Vital Signs - 8 hr 08/11/17 08/11/17 12:01 12:22 Temp 97.9 F HR 62 60 RR 16 16 BP 100/52 126/73 O2 Sat % 98 95 ED Reassessment (Disposition) - Reassessment Reassessment:: pt is asymptomatic upon discharge Reassessment Condition:: Improved - Diagnosis Diagnosis:: G-Tube Dysfunction; G-Tube Replacement - Aftercare/Follow up Instructions Aftercare/Follow-Up Instructions:: Counseled pt regarding lab results/diagnosis & need follow up, Refer to Discharge Instructions, Counseled pt & family regarding lab results/diagnosis & need follow up - Patient Disposition Discharge/Transfer:: Residential Care - SNF Condition at Disposition:: Stable, Improved (RTER prn if existing s/s reoccur and/or get worse and/or any other new s/s occur; ACIs given for all above Dx; X- Rays Instructions; Refer to GI Specialist/Certified Surgical Tech/First Assistant GIANCARLO; F/U with PMD in one day or prn; RTER prn if concerned) ED Discharge Plan - Patient Disposition Admit/Discharge/Transfer: Residential Care HOSP - SNF Condition at Disposition: Stable Instructions: Care of a Feeding Tube, [id number] Accepting Physician: Luis Fernando Gonzalez [Primary Care Provider] - 1-3 Days
== END 2017-08-11 12:45 ==
LOC: EDUNIT# → ER 11:56
DX: K94.29 Other complications of gastrostomy (principal); I10 Essential (primary) hypertension
CPT/HCPCS: Z7502; Z7610